=== PATIENT | female | born 1930 | race Caucasian/White ===

== ENCOUNTER 2020-11-20 15:43 | Emergency (ER) | payer MEDICARE ==
[~2020-11-20] VITALS: Ht 152.4 cm; Wt 55.0 kg
--- NOTE | 2020-11-20 16:20 | PHYS DOC ---
Past Medical History Past Medical History: Other (Dementia) General Adult EDM: Chief Complaint: FACIAL INJURY HPI: HPI: Patient is a 89 year old female who was brought here by her daughter for evaluation of facial injury. Patient was not sure what happened. Patient lives with her daughter, this morning her daughter noticed some contusion to the right side of her face, patient told her daughter that she fell last night. Patient denies any back pain, no nausea vomiting, no extremity pain. Patient denies chest pain, no abdominal pain, no nausea vomiting Review of Systems: Review of Systems: Constitutional: Denies fever or chills. [] Eyes: Denies change in visual acuity. [] HENT: Denies nasal congestion or sore throat. [] Respiratory: Denies cough or shortness of breath. [] Cardiovascular: Denies chest pain or edema. [] GI: Denies abdominal pain, nausea, vomiting, bloody stools or diarrhea. [] : Denies dysuria. [] Musculoskeletal: Denies back pain or joint pain. [] Integument: Positive for facial contusion. Neurologic: Denies headache, focal weakness or sensory changes. [] Endocrine: Denies polyuria or polydipsia. [] Lymphatic: Denies swollen glands. [] Psychiatric: Denies depression or anxiety. [] Heart Score: C/O Chest Pain: N/A Risk Factors: Risk Factors: DM, Current or recent (<one month) smoker, HTN, HLP, family history of CAD, obesity. Risk Scores: Score 0 - 3: 2.5% MACE over next 6 weeks - Discharge Home Score 4 - 6: 20.3% MACE over next 6 weeks - Admit for Clinical Observation Score 7 - 10: 72.7% MACE over next 6 weeks - Early Invasive Strategies Physical Exam: PE: Constitutional: Well developed, well nourished, no acute distress, non-toxic appearance. [] HENT: Normocephalic, Right side facial contusion, right side forehead skin contusion, bilateral external ears normal, oropharynx moist, no oral exudates, nose normal. No septal hematoma. Eyes: PERRLA, EOMI, conjunctiva normal, no discharge. right periorbital hematoma. Neck: Normal range of motion, no tenderness, supple, no stridor. [] Cardiovascular:Heart rate regular rhythm, no murmur [] Lungs & Thorax: Bilateral breath sounds clear to auscultation [] Abdomen: Bowel sounds normal, soft, no tenderness, no masses, no pulsatile ashley s. [] Skin: Warm, dry, no erythema, no rash. [] Back: No tenderness, no CVA tenderness. [] Extremities: No tenderness, no cyanosis, no clubbing, ROM intact, no edema. [] Neurologic: Alert and oriented X 3, normal motor function, normal sensory function, no focal deficits noted. [] Psychologic: Affect normal, judgement normal, mood normal. [] EKG: EKG: [] Radiology/Procedures: Radiology/Procedures: [][facility] [address] [place], [place] [id number] IMAGING REPORT Signed PATIENT: NEREIDA TATUM ACCOUNT: [id number] : 1930 LOCATION: ER AGE: 89 SEX: F EXAM STATUS: REG ER ORD. PHYSICIAN: HERIBERTO ESTEBAN DO REASON: FELL, RIGHT SIDE FACIAL AND FOREHEAD INJURY PROCEDURE: CT HEAD AND MAXILLOFACIAL WO Exam: CT head, maxillofacial and cervical spine INDICATION: Fall, right-sided face and forehead injury TECHNIQUE: Sequential axial images through the head, face and cervical spine were obtained without the administration of IV contrast. Comparisons: None FINDINGS: Head: No focal parenchymal lesion or hemorrhage is identified. There is no midline shift or sulcal effacement. Patchy hypodensity in the periventricular white matter. No acute vascular territory infarction is identified. Benites-white distinction is preserved. The ventricular system is within normal limits without compression hydrocephalus. The basal cisterns are well maintained. Face: Extra cranial soft tissue scalp contusion overlying the right frontal region without underlying osseous or intracranial abnormality. Globes and orbital contents are normal. The visualized portions of the paranasal sinuses and mastoid air cells are well-pneumatized. No acute fractures. Cervical spine: Vertebral body heights and alignment are well-maintained. Fracture to the cervical spine is not identified. Multilevel spondylotic change in cervical spine with degenerative disc disease greatest at C3-C4 and C4-C5. Mild bilateral facet arthropathy is noted in the cervical spine. Visualized paraspinal soft tissues are unremarkable. IMPRESSION: 1. Extra cranial soft tissue scalp contusion overlying the right superior orbital ridge. No acute osseous abnormality identified. Underlying globes intradural contents are normal. 2. Moderate small vessel ischemic change, technically age indeterminate without recent prior imaging. 3. Negative CT C-spine for acute traumatic injury. Exposure: One or more of the following in the visualized dose reduction techniques were utilized for this examination: 1. Automated exposure control 2. Adjustment of the MA and/or KV according to patient size Use of iterative of reconstructive technique Electronically signed by: Rosio Miller MD (11/20/2020 4:36 PM) [facility] DICTATED and SIGNED BY: ROSIO MILLER MD DATE: 11/20/20 [id number] 0 Course & Med Decision Making: Course & Med Decision Making Pertinent Labs and Imaging studies reviewed. (See chart for details) Patient is an 89-year-old female who presented to ER evaluation of facial injury, CT scan her head, her face and her C-spine did not show any acute fracture or dislocation. Patient be discharged home in stable condition Dragon Disclaimer: Dragon Disclaimer: This electronic medical record was generated, in whole or in part, using a voice recognition dictation system. Departure Departure Impression: Primary Impression: Facial contusion Disposition: 01 DC HOME SELF CARE/HOMELESS Condition: STABLE Referrals: STANLEY CONNER MD (PCP) Follow up with your doctor as needed Patient Instructions: Facial or Scalp Contusion Additional Instructions: Thank you for visiting our Emergency Department. We appreciate you trusting us with your care. If any additional problems come up don't hesitate to return to visit us. Please follow up with your primary care provider so they can plan additional care if needed and know about the problem that you had. If symptoms worsen come back to the Emergency Department. Any concerning symptoms that start such as chest pain, shortness of air, weakness or numbness on one side of the body, running high fevers or any other concerning symptoms return to the ER. HERIBERTO ESTEBAN DO Nov 20, 2020 16:20
--- NOTE | 2020-11-20 16:38 | RAD ---
Exam: CT head, maxillofacial and cervical spine INDICATION: Fall, right-sided face and forehead injury TECHNIQUE: Sequential axial images through the head, face and cervical spine were obtained without th e administration of IV contrast. Comparisons: None FINDINGS: Head: No focal parenchymal lesion or hemorrhage is identified. There is no midline shift or sulcal effaceme nt. Patchy hypodensity in the periventricular white matter. No acute vascular territory infarction is blair ntified. Benites-white distinction is preserved. The ventricular system is within normal limits without compression hydrocephalus. The basal cisterns are well maintained. Face: Extra cranial soft tissue scalp contusion overlying the right frontal region without underlying osseo us or intracranial abnormality. Globes and orbital contents are normal. The visualized portions of th e paranasal sinuses and mastoid air cells are well-pneumatized. No acute fractures. Cervical spine: Vertebral body heights and alignment are well-maintained. Fracture to the cervical spine is not identified. Multilevel spondylotic change in cervical spine with degenerative disc disease greatest at C3-C4 and C4-C5. Mild bilateral facet arthropathy is noted in the cervical spine. Visualized paraspinal soft tissues are unremarkable. IMPRESSION: 1. Extra cranial soft tissue scalp contusion overlying the right superior orbital ridge. No acute os seous abnormality identified. Underlying globes intradural contents are normal. 2. Moderate small vessel ischemic change, technically age indeterminate without recent prior imaging . 3. Negative CT C-spine for acute traumatic injury. Exposure: One or more of the following in the visualized dose reduction techniques were utilized for this examination: 1. Automated exposure control 2. Adjustment of the MA and/or KV according to patient size Use of iterative of reconstructive technique Electronically signed by: Rosio Carty MD (11/20/2020 4:36 PM) [facility]
[2020-11-20 17:05] VITALS: BP 175/88
== END 2020-11-20 17:30 | disposition home or self-care (01) ==
LOC: ER 15:43
DX: S00.83XA Contusion of other part of head, initial encounter (principal); F03.90 Unspecified dementia, unspecified severity, without behavioral disturbance, psychotic disturbance, mood disturbance, and anxiety; W18.39XA Other fall on same level, initial encounter; Y93.89 Activity, other specified; Y92.89 Other specified places as the place of occurrence of the external cause; Y99.8 Other external cause status
CPT/HCPCS: 70450; 70486; 72125; 99284

== ENCOUNTER 2021-11-09 09:10 | Inpatient (IN) | payer MEDICARE ==
[~2021-11-09] VITALS: Ht 154.9 cm; Wt 52.4 kg
--- NOTE | 2021-11-09 09:19 | PHYS DOC ---
Past Medical History Past Medical History: Dementia, Other Additional Past Medical Histor: OSTEOPOROSIS Past Surgical History: Other Additional Past Surgical Histo: UNKNOWN Smoking Status: Never Smoker Alcohol Use: None Drug Use: None General Adult HPI: HPI: Patient is a 89 year old female brought in by EMS for evaluation after a fall. The patient has dementia. She lives with her daughter. The patient is unsure of what occurred. The patient's daughter arrives in the ER, she reports that a neighbor called her and told her that her mother was lying in the middle of the road. The patient's daughter reports that the patient often gets up in the middle night or early hours of the morning and tries to walk around the house or get outside and walk around. She is supposed to use a cane or a walker, she does not reportedly using any ambulatory device. The patient was unable to get up out of the road on her own when EMS arrived. The patient has multiple abrasions and contusions. The patient does report having pain at her right cheek, where she has a contusion and abrasion. She also has pain at a chin laceration site and left hand laceration site. She also reports having some pain in her epigastric and lower chest area. The patient's daughter reports that she fell over a week ago, and she has had a bruise on her chest/abdomen since that time. The patient denies dyspnea. She denies headache. She denies neck pain or back pain. She denies numbness or tingling. She has chronic mobility issues and chronic generalized weakness. No acute mental status c hanges reported today per the patient's daughter. Review of Systems: Review of Systems: Review of systems is as per HPI, somewhat limited secondary to patient's chronic dementia. Heart Score: C/O Chest Pain: Yes HEART Score for Chest Pain: HEART Score for Chest Pain Response (Comments) Value History Moderately Suspicious 1 ECG Nonspecific Repolarizatio 1 Age > 65 2 Troponin < Normal Limit 0 Total 4 Risk Factors: Risk Factors: DM, Current or recent (<one month) smoker, HTN, HLP, family history of CAD, obesity. Risk Scores: Score 0 - 3: 2.5% MACE over next 6 weeks - Discharge Home Score 4 - 6: 20.3% MACE over next 6 weeks - Admit for Clinical Observation Score 7 - 10: 72.7% MACE over next 6 weeks - Early Invasive Strategies Allergies: Allergies: Allergies Coded Allergies Type Severity Reaction Last Updated Verified Penicillins Allergy Unknown 11/20/20 Yes Physical Exam: PE: Constitutional: Frail, thin, chronically ill-appearing. Disheveled. HENT: She has a superficial linear abrasion of her right cheek, with underlying soft tissue swelling and ecchymosis. She has a large abrasion of her chin. There is an overlying subcutaneous laceration of her mid chin, approximately 1.5 cm. No large cephalhematoma or scalp injury. Her right front tooth is broken. Her dental hygiene is very poor. Mucous membranes are tacky. Oropharynx is patent and clear. TMs are clear bilaterally. Nares are patent clear without rhinorrhea or epistaxis. No hemotympanum. Eyes: PERRL, EOMI, conjunctiva normal, no discharge. No nystagmus. There is some soft tissue swelling and bruising just below her right eye. She was wearing broken glasses and it appears where the glasses hit her face when she fell is where she sustained her abrasion and soft tissue injury of her cheek/infraorbital area. No other evidence of orbital trauma. Neck: Normal range of motion, no tenderness, supple, no stridor. Achy midline, no midline tenderness or step-offs. Cardiovascular:Heart rate regular rhythm, +2 radial and dorsalis pedis pulses bilaterally. Lungs & Thorax: Bilateral breath sounds clear to auscultation [] Abdomen: Abdomen is soft, nondistended, nontender to palpation, no palpable masses organomegaly. There is a small, and contusion of her left upper quadrant/epigastric area. No other evidence of abdominal or flank contusions or evidence of trauma Skin: Chin abrasion, right cheek abrasion and soft tissue swelling. Chin laceration. She has superficial circular abrasions of bilateral anterior knees. She has a flap-like, semicircular laceration/skin avulsion of her dorsum of her mid left hand. Back: No point tenderness, no step-offs. No deformity. Extremities: Bilateral anterior knee circular, superficial abrasions. No bony tenderness. There is a semicircle skin avulsion/laceration of the mid dorsum of her left hand. There is underlying soft tissue swelling and contusion. No bony tenderness of the upper or lower extremities. Pelvis is stable. Full active and passive range of motion of bilateral shoulders, bilateral elbows, bilateral wrists, hands and digits. Full range of motion of bilateral hips, knees, ankles and feet. Neurological: She is awake, alert, oriented to person only. She does not know the date, this is baseline for her. She does not understand or know the circumstances surrounding why she is here. She moves all 4 extremities equally. She has 5 out of 5 motor strength all 4 extremities. No limb ataxia. Speech is clear and fluent. No facial asymmetry. Psychologic: Affect relatively flat, she is very pleasant and cooperative EKG: EKG: EKG is interpreted at 0938 Rhythm is sinus Rate is 100 bpm [place] is normal No STEMI Radiology/Procedures: Radiology/Procedures: IMAGING REPORT Signed PATIENT: NEREIDA TATUM ACCOUNT: [id number] : 1930 LOCATION: ER AGE: 89 SEX: F EXAM STATUS: PRE ER ORD. PHYSICIAN: SMOOTH MONTERO DO REASON: fall, facial injury PROCEDURE: CT HEAD AND MAXILLOFACIAL WO CT scan of the head without contrast 11/09/2021 Clinical History: Fall. Head injury. Technique: Unenhanced, contiguous, 5 mm axial sections were obtained through the head. One or more of the following individualized dose reduction techniques were utilized for this study: 1. Automated exposure control. 2. Adjustment of the mA and/or kV according to patient size. 3. Use of iterative reconstruction technique. Findings: Comparison study is dated 11/20/2020. There is generalized parenchymal atrophy. Areas of decreased attenuation are seen within the periventricular and subcortical white matter of both cerebral hemispheres consistent with areas of small vessel ischemic disease. No acute parenchymal abnormality is seen. No extra-axial fluid collection is noted. No skull fracture is seen. Impression: No acute intracranial abnormality is seen. CT scan of the facial bones without contrast 11/09/2021 Clinical history: Fall with Facial trauma. Technique: Unenhanced, contiguous, 0.625 mm axial sections were obtained through the facial bones and orbits. 3 mm reconstructed axial, coronal and sagittal images were obtained. One or more of the following individualized dose reduction techniques were utilized for this study: 1. Automated exposure control. 2. Adjustment of the mA and/or kV according to patient size. 3. Use of iterative reconstruction technique. Findings: No facial bone fracture is seen. Both orbits are intact. The paranasal sinuses are essentially clear. No air-fluid level is seen. Impression: No facial bone fracture is seen. Electronically signed by: Andrea Roberts MD (11/09/2021 10:19 AM) [id number] DICTATED and SIGNED BY: ANDREA ROBERTS MD DATE: 11/09/21 [id number] 0 IMAGING REPORT Signed PATIENT: NEREIDA TATUM ACCOUNT: [id number] : 1930 LOCATION: ER AGE: 89 SEX: F EXAM STATUS: PRE ER ORD. PHYSICIAN: SMOOTH MONTERO DO REASON: fall, facial injury PROCEDURE: CT CERVICAL SPINE WO CONTRAST CT scan of the cervical spine without contrast 11/09/2021 Clinical history: Fall with neck injury. Technique: Unenhanced, contiguous, 0.625 mm axial sections were obtained through the cervical spine. 2.5 mm reconstructed axial and 2 mm coronal and sagittal reconstructed images were obtained. One or more of the following individualized dose reduction techniques were utilized for this study: 1. Automated exposure control. 2. Adjustment of the mA and/or kV according to patient size. 3. Use of iterative reconstruction technique. Findings: Sagittal and coronal reconstructed images demonstrate straightening of the normal cervical lordosis. Mild lateral curvature of the cervical spine is seen convex to the right. Degenerative changes consisting of varying degrees of disc space narrowing, vertebral endplate sclerosis and mild anterior and posterior vertebral body osteophyte formation are seen throughout the cervical disc spaces. No fracture or subluxation cervical vertebrae is seen. Degenerative changes are seen involving the uncovertebral and facet joints throughout the cervical disc spaces. Atherosclerotic calcification is seen in the region of the carotid bifurcations. Impression: No fracture or subluxation of the cervical vertebra is identified. Electronically signed by: Andrea Roberts MD (11/09/2021 10:24 AM) [id number] DICTATED and SIGNED BY: ANDREA ROBERTS MD DATE: 11/09/21 [id number] 0 IMAGING REPORT Signed PATIENT: NEREIDA TATUM ACCOUNT: [id number] : 1930 LOCATION: ER AGE: 89 SEX: F EXAM STATUS: PRE ER ORD. PHYSICIAN: SMOOTH MONTERO DO REASON: fall, chest pain PROCEDURE: PORTABLE CHEST 1V XR CHEST 1V CLINICAL INDICATIONS: Reason: fall, chest pain COMPARISON: March 18, 2013. Findings: There is mild atelectasis of the right lung base. No lung consolid ation or pleural effusion or pulmonary edema or lung mass or pneumothorax is seen. The heart size, pulmonary vasculature, mediastinum and both jean-paul are unremarkable. No obvious rib deformity or shoulder deformity is evident. IMPRESSION: Mild right lung base atelectasis. Electronically signed by: Brian Lyman MD (11/09/2021 10:30 AM) [id number] DICTATED and SIGNED BY: BRIAN LYMAN MD DATE: 11/09/21 [id number] 0 IMAGING REPORT Signed PATIENT: NEREIDA TATUM ACCOUNT: [id number] : 1930 LOCATION: ER AGE: 89 SEX: F EXAM STATUS: REG ER ORD. PHYSICIAN: SMOOTH MONTERO DO REASON: multiple falls, chest pain, abd pain, abd bruising;OMNI 300,60ML PROCEDURE: CT CHEST ABD PELVIS W/CONTRAST CT scan of the chest, abdomen and pelvis with contrast 11/09/2021 CLINICAL HISTORY: Frequent falls. Chest and abdominal pain. Bruising. TECHNIQUE: After the intravenous administration of contrast, contiguous, 0.625 mm axial sections were obtained through the chest, abdomen and pelvis. 5 mm reconstructed axial and 5 mm sagittal and coronal reconstructed images were obtained. 91 cc of Omnipaque 300 were administered intravenously during this examination. One or more of the following individualized dose reduction techniques were utilized for this study: 1. Automated exposure control. 2. Adjustment of the mA and/or kV according to patient size. 3. Use of iterative reconstruction technique. FINDINGS: Comparison is made to a portable chest radiograph performed earlier today. No mediastinal hematoma is seen. Atherosclerotic calcification of the thoracic aorta is noted. The thoracic aorta is tortuous but tapers normally. There is mild cardiomegaly. Calcified right hilar and mediastinal lymph nodes are seen. Minimal dependent subsegmental atelectasis is seen involving both lungs. No area of consolidation is seen. No pneumothorax or pleural effusion is noted. The liver, spleen, pancreas, adrenal glands and kidneys are within normal limits. Atherosclerotic calcification abdominal aorta and its branches is noted. The abdominal aorta tapers normally. The gallbladder is well-distended. No free fluid or free air is seen within the abdomen. There is no evidence of bowel obstruction. Images through the pelvis demonstrate the urinary bladder distended with urine. No free fluid is seen. No pelvic hematoma is noted. A hip screw, side plate and bone screws are seen within the proximal left femur. Degenerative changes are s een involving the thoracic and lumbar spine. No acute fracture is seen. IMPRESSION: No acute abnormality is seen. Electronically signed by: Andrea Roberts MD (11/09/2021 12:09 PM) [id number] DICTATED and SIGNED BY: ANDREA ROBERTS MD DATE: 11/09/21 [id number] 0 Course & Med Decision Making: Course & Med Decision Making Pertinent Labs and Imaging studies reviewed. (See chart for details) The patient requested pain medication for her wounds. She was given IV fentanyl. IV fluids were given. She tolerated laceration repair well. I discussed the findings, differential diagnosis and plan of care with the patient and her daughter. The patient's daughter reports that she feels that the pat ient requires admission, she is requesting placement. The patient's daughter is her power compliance attorney, she confirmed that the patient is a full CODE STATUS. The patient is excepted for admission by Dr. Wilkinson, on behalf of her primary care physician, Dr. Marley. Caryl Disclaimer: Caryl Disclaimer: This electronic medical record was generated, in whole or in part, using a voice recognition dictation system. Departure Departure Impression: Primary Impression: Fall Additional Impressions: Chin laceration Facial contusion Facial abrasion Laceration of left hand Abrasion of right knee Abrasion of left knee Dementia Failure to thrive in adult Disposition: 09 ADMITTED INPATIENT Admitting Physician: Stanley Marley Condition: GUARDED Referrals: STANLEY MARLEY MD (PCP) Laceration Repair Lac Repair Indication: Chin laceration and left hand laceration Procedure: The patient was placed in the appropriate position, seated on the ED gurney. 1% lidocaine with epinephrine was utilized for local anesthesia. Adequate anesthesia was achieved. The chin wound and left hand wound are both cleaned with Betadine and irrigated copiously with sterile normal saline. No sharp debridement was required. The chin laceration was closed utilizing a total of two 5-0 Ethilon simple interrupted sutures. The left hand wound was closed utilizing a total of three 5-0 Ethilon simple interrupted sutures. Adequate wound eversion, hemostasis and closure were achieved. The wounds were covered with clean dressings. Total repaired wound length: Left chin wound 1 cm. Left hand wound 2 cm The patient tolerated the procedures well. Complications: none. SMOOTH MONTERO DO Nov 09, 2021 09:18
[2021-11-09] MEDS ORDERED: TETANUS AND DIPHTHERIA TOX/PF 0.5 ML DISP.SYRIN. VAX IM ONE (09:45)
[2021-11-09] MEDS ORDERED: fentaNYL PF VIAL 100 MCG/2 ML VIAL IVP ONE ×2 (09:45→12:30)
[2021-11-09] MEDS ORDERED: IV NORMAL SALINE 1000ML BAG 1,000 ML IV ONE (09:45)
[2021-11-09 10:08] LABS: BASO % 0 % (0-3); EOS % 1 % (0-3); HEMATOCRIT 43.4 % (36.0-47.0); LYMPH # 0.6 x10^3/uL (1.0-4.8); LYMPH % 5 % (24-48); MEAN CORPUSCULAR HEMOGLOBIN 29 pg (25-35); MEAN CORPUSCULAR HGB CONC 32 g/dL (31-37); MEAN CORPUSCULAR VOLUME 90 fL (79-100); MONO # 0.7 x10^3/uL (0.0-1.1); MONO % 7 % (0-9); NEUT # 8.9 x10^3/uL (1.8-7.7); NEUT % 87 % (31-73); PLATELET COUNT 256 x10^3/uL (140-400); RED BLOOD COUNT 4.82 x10^6/uL (3.50-5.40); RED CELL DISTRIBUTION WIDTH 13.1 % (11.5-14.5); WHITE BLOOD COUNT 10.2 x10^3/uL (4.0-11.0)
[2021-11-09 10:20] LABS: PROTHROMBIN TIME PATIENT 13.2 SEC (11.7-14.0)
[2021-11-09 10:21] LABS: CALCIUM 9.5 mg/dL (8.5-10.1); GFR 52.2; POTASSIUM 4.1 mmol/L (3.5-5.1)
--- NOTE | 2021-11-09 10:21 | RAD ---
CT scan of the head without contrast 11/09/2021 Clinical History: Fall. Head injury. Technique: Unenhanced, contiguous, 5 mm axial sections were obtained through the head. One or more of the following individualized dose reduction techniques were utilized for this study: 1. Automated exposure control. 2. Adjustment of the mA and/or kV according to patient size. 3. Use of iterative reconstruction technique. Findings: Comparison study is dated 11/20/2020. There is generalized parenchymal atrophy. Areas of decreased attenuation are seen within the perivent ricular and subcortical white matter of both cerebral hemispheres consistent with areas of small vess el ischemic disease. No acute parenchymal abnormality is seen. No extra-axial fluid collection is not ed. No skull fracture is seen. Impression: No acute intracranial abnormality is seen. CT scan of the facial bones without contrast 11/09/2021 Clinical history: Fall with Facial trauma. Technique: Unenhanced, contiguous, 0.625 mm axial sections were obtained through the facial bones and orbits. 3 mm reconstructed axial, coronal and sagittal images were obtained. One or more of the following individualized dose reduction techniques were utilized for this study: 1. Automated exposure control. 2. Adjustment of the mA and/or kV according to patient size. 3. Use of iterative reconstruction technique. Findings: No facial bone fracture is seen. Both orbits are intact. The paranasal sinuses are essentia lly clear. No air-fluid level is seen. Impression: No facial bone fracture is seen. Electronically signed by: Andrea Roberts MD (11/09/2021 10:19 AM) [id number]
--- NOTE | 2021-11-09 10:26 | RAD ---
CT scan of the cervical spine without contrast 11/09/2021 Clinical history: Fall with neck injury. Technique: Unenhanced, contiguous, 0.625 mm axial sections were obtained through the cervical spine. 2.5 mm reconstructed axial and 2 mm coronal and sagittal reconstructed images were obtained. One or more of the following individualized dose reduction techniques were utilized for this study: 1. Automated exposure control. 2. Adjustment of the mA and/or kV according to patient size. 3. Use of iterative reconstruction technique. Findings: Sagittal and coronal reconstructed images demonstrate straightening of the normal cervical lordosis. Mild lateral curvature of the cervical spine is seen convex to the right. Degenerative mack ges consisting of varying degrees of disc space narrowing, vertebral endplate sclerosis and mild ante rior and posterior vertebral body osteophyte formation are seen throughout the cervical disc spaces. No fracture or subluxation cervical vertebrae is seen. Degenerative changes are seen involving the un covertebral and facet joints throughout the cervical disc spaces. Atherosclerotic calcification is se en in the region of the carotid bifurcations. Impression: No fracture or subluxation of the cervical vertebra is identified. Electronically signed by: Andrea Roberts MD (11/09/2021 10:24 AM) [id number]
[2021-11-09 10:29] LABS: ALBUMIN 3.8 g/dL (3.4-5.0); MAGNESIUM 2.2 mg/dL (1.8-2.4); TOTAL BILIRUBIN 0.3 mg/dL (0.2-1.0); TOTAL PROTEIN 7.8 g/dL (6.4-8.2)
[2021-11-09] MEDS ORDERED: DIPHTH,PERTUSS(ACELL),TET TOX 0.5 ML DISP.SYRIN. VAX IM ONE (10:30)
--- NOTE | 2021-11-09 10:32 | RAD ---
XR CHEST 1V CLINICAL INDICATIONS: Reason: fall, chest pain COMPARISON: March 18, 2013. Findings: There is mild atelectasis of the right lung base. No lung consolidation or pleural effusion or pulmonary edema or lung mass or pneumothorax is seen. The heart size, pulmonary vasculature, med iastinum and both jean-paul are unremarkable. No obvious rib deformity or shoulder deformity is evident. IMPRESSION: Mild right lung base atelectasis. Electronically signed by: Brian Lyman MD (11/09/2021 10:30 AM) [id number]
[2021-11-09] MEDS ORDERED: LIDOCAINE 1%/EPI 1:100,000 20 ML VIAL. INJ ONE (11:00)
[2021-11-09] MEDS ORDERED: CONTRAST GIVEN. MC PRN (11:15)
[2021-11-09] MEDS ORDERED: IOHEXOL 300 MG/ML 100ML VIAL. IV ONE (11:15)
--- NOTE | 2021-11-09 12:11 | RAD ---
CT scan of the chest, abdomen and pelvis with contrast 11/09/2021 CLINICAL HISTORY: Frequent falls. Chest and abdominal pain. Bruising. TECHNIQUE: After the intravenous administration of contrast, contiguous, 0.625 mm axial sections were obtained through the chest, abdomen and pelvis. 5 mm reconstructed axial and 5 mm sagittal and coron al reconstructed images were obtained. 91 cc of Omnipaque 300 were administered intravenously during this examination. One or more of the following individualized dose reduction techniques were utilized for this study: 1. Automated exposure control. 2. Adjustment of the mA and/or kV according to patient size. 3. Use of iterative reconstruction technique. FINDINGS: Comparison is made to a portable chest radiograph performed earlier today. No mediastinal hematoma is seen. Atherosclerotic calcification of the thoracic aorta is noted. The th oracic aorta is tortuous but tapers normally. There is mild cardiomegaly. Calcified right hilar and m ediastinal lymph nodes are seen. Minimal dependent subsegmental atelectasis is seen involving both lungs. No area of consolidation is seen. No pneumothorax or pleural effusion is noted. The liver, spleen, pancreas, adrenal glands and kidneys are within normal limits. Atherosclerotic calcification abdominal aorta and its branches is noted. The abdominal aorta tapers n ormally. The gallbladder is well-distended. No free fluid or free air is seen within the abdomen. The re is no evidence of bowel obstruction. Images through the pelvis demonstrate the urinary bladder distended with urine. No free fluid is seen . No pelvic hematoma is noted. A hip screw, side plate and bone screws are seen within the proximal l eft femur. Degenerative changes are seen involving the thoracic and lumbar spine. No acute fracture i s seen. IMPRESSION: No acute abnormality is seen. Electronically signed by: Andrea Roberts MD (11/09/2021 12:09 PM) [id number]
[2021-11-09 13:15] LABS: BILIRUBIN,URINE NEGATIVE (NEG); CLARITY,URINE CLEAR; COLOR,URINE STRAW; NITRITE,URINE NEGATIVE (NEG); PH,URINE 7.5 (<5.0-8.0); PROTEIN,URINE NEGATIVE (NEG-TRACE); UROBILINOGEN,URINE 0.2 mg/dL (0.2 mg/dL)
[2021-11-09 13:16] LABS: AMORPHOUS SEDIMENT,UR PRESENT /HPF; HYALINE CASTS, URINE MODERATE /HPF
[2021-11-09 13:17] LABS: BACTERIA,URINE 0 /HPF (0-FEW); RBC,URINE 0 /HPF (0-2); WBC,URINE 0 /HPF (0-4)
[2021-11-09] MEDS ORDERED: MIRT-7 PO (14:30)
[2021-11-09] MEDS ORDERED: VITA100022 PO (14:30)
[2021-11-09] MEDS ORDERED: MULT-114 PO (14:30)
[2021-11-09] MEDS ORDERED: MEMA10TA PO (14:30)
[2021-11-09] MEDS ORDERED: ACETAMINOPHEN 325 MG TABLET. PO PRN (14:45)
[2021-11-09 15:00] VITALS: BP 154/85
[2021-11-09] MEDS: CALCIUM CARB/VIT D3 500/200 TABLET. PO SCH (16:53)
--- NOTE | 2021-11-09 17:13 | EKG ---
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
[2021-11-09 19:00] VITALS: BP 151/70
[2021-11-09] MEDS: MEMANTINE 10 MG TABLET. PO SCH ×2 (20:53→20:59)
[2021-11-09] MEDS: MIRTAZAPINE 15 MG TABLET PO SCH ×2 (20:53→20:59)
[2021-11-09] MEDS: HALOPERIDOL LACTATE 5 MG/ML VIAL. IVP PRN (23:45)
[2021-11-09 23:57] VITALS: BP 145/69
[2021-11-10 03:00] VITALS: BP 178/81
[2021-11-10] MEDS: HALOPERIDOL LACTATE 5 MG/ML VIAL. IVP PRN (03:47)
[2021-11-10 07:00] VITALS: BP 121/66
[2021-11-10] MEDS: CALCIUM CARB/VIT D3 500/200 TABLET. PO SCH ×2 (08:05→16:30)
[2021-11-10] MEDS: MULTIVITAMIN with MINERAL TABLET. PO SCH (08:05)
[2021-11-10] MEDS: MEMANTINE 10 MG TABLET. PO SCH ×3 (08:05→21:00)
--- NOTE | 2021-11-10 08:10 | PDOC ---
Provider Note Date of Service: DATE: 11/10/21 TIME: 08:09 Provider Note dictated Justifications for Admission Other Justification SHALINI GUO MD Nov 10, 2021 08:10
[2021-11-10 11:00] VITALS: BP 121/75
--- NOTE | 2021-11-10 13:00 | NUR ---
SW following. Discussed with RN, pt from home with daughter, room air, regular diet. COVID pending for possible placement. PT/OT ordered. Pt eloped from home and found down outside. SW will continue to follow.
[2021-11-10 15:00] VITALS: BP 123/62
[2021-11-10 19:00] VITALS: BP 119/56
[2021-11-10] MEDS: MIRTAZAPINE 15 MG TABLET PO SCH ×2 (20:13→21:00)
[2021-11-10 23:00] VITALS: BP 128/57
[2021-11-11 03:24] VITALS: BP 120/60
[2021-11-11 07:00] VITALS: BP 131/65
--- NOTE | 2021-11-11 08:07 | PDOC ---
Provider Note Date of Service: DATE: 11/11/21 TIME: 08:06 Provider Note still sleepy but reesponsive, confused , nonfocal- d/w daughter, may qual for snf, still wants her a full code Justifications for Admission Other Justification SHALINI GUO MD Nov 11, 2021 08:07
[2021-11-11] MEDS: MEMANTINE 10 MG TABLET. PO SCH ×2 (08:13→20:33)
[2021-11-11] MEDS: MULTIVITAMIN with MINERAL TABLET. PO SCH (08:13)
[2021-11-11] MEDS: CALCIUM CARB/VIT D3 500/200 TABLET. PO SCH ×2 (08:13→17:41)
[2021-11-11 11:00] VITALS: BP 108/50
--- NOTE | 2021-11-11 14:49 | NUR ---
SW following. Discussed with RN, pt from home with daughter, room air, regular diet, COVID-19 negative. Therapy recommending SNF. SW spoke with pt's daughter, Cindy (ph: [phone]) she would like to speak to her brother about discharge planning and whether to go to SNF VS home health. Awaiting return call. SW will continue to follow.
[2021-11-11 15:00] VITALS: BP 118/67
--- NOTE | 2021-11-11 15:39 | NUR ---
Assumed patient care at 1500. Agree with most recent nursing assessment. Will continue to monitor.
--- NOTE | 2021-11-11 17:41 | HP ---
DATE OF SERVICE: 11/11/2021 ADMIT DATE: 11/09/2021 CHIEF COMPLAINT: Fall. HISTORY OF PRESENT ILLNESS: An 89-year-old white female with a history of Alzheimer's dementia, moderate degree who was outside, confused and walking down the street and came in with facial abrasions and pain. X-rays of the hand including CT scan of the head, neck, chest, and abdomen all unremarkable and she was admitted for observation and daughter no longer able to care for her, wishing placement. PAST MEDICAL HISTORY: She takes Namenda for dementia, mirtazapine for appetite. No other known medical problems. ALLERGIES: No allergies. She has failed Aricept in the past. SOCIAL HISTORY: , nonsmoker and nondrinker, lives with her family. FAMILY HISTORY: Unremarkable. REVIEW OF SYSTEMS: Unremarkable. OBJECTIVE: ENT: Multiple facial abrasions. No other specific inciting trauma. 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 NECK: No carotid bruits, nodes or masses. LUNGS: Clear. CARDIOVASCULAR: Regular rate. No irregular beat or murmur. ABDOMEN: Benign and nontender. EXTREMITIES: No active joint or skin lesions or injuries. NEUROLOGIC: Sleeping after sedation. PHYSIOLOGIC: Nonfocal. ASSESSMENT: Progressive dementia, self-care deficits, and recent fall. PLAN: Admitted for evaluation for therapy and possible placement. JEREMY/OSMEL DR: Daniel TID: [phone]
[2021-11-11 19:00] VITALS: BP 141/71
[2021-11-11] MEDS: MIRTAZAPINE 15 MG TABLET PO SCH (20:33)
[2021-11-11 23:00] VITALS: BP 159/89
[2021-11-12 02:43] VITALS: BP 181/80
[2021-11-12 07:00] VITALS: BP 169/92
[2021-11-12] MEDS: CALCIUM CARB/VIT D3 500/200 TABLET. PO SCH (08:08)
[2021-11-12] MEDS: MULTIVITAMIN with MINERAL TABLET. PO SCH (08:09)
[2021-11-12] MEDS: MEMANTINE 10 MG TABLET. PO SCH (08:09)
--- NOTE | 2021-11-12 08:32 | SNU/HH DC ---
DISCHARGE WITH HOME HEALTH DISCHARGE INFORMATION: Final Diagnosis: Problems Medical Problems: (1) Abrasion of left knee Status: Acute (2) Abrasion of right knee Status: Acute (3) Chin laceration Status: Acute (4) Dementia Status: Acute (5) Facial abrasion Status: Acute (6) Facial contusion Status: Acute (7) Failure to thrive in adult Status: Acute (8) Fall Status: Acute (9) Laceration of left hand Status: Acute Condition on Discharge: Stable CODE STATUS: Code Status: Full HOME HEALTH: Face to Face: I certify this patient is under my care and that I, or a nurse practitioner or physician's assistant dean of students working with me, had a face to face encounter that meets the physician face to face encounter requirements with this patient on []. RN For Eval/Treatment: No Physical Therapy For: Evalulation/Treatment Home Health Aide For: Self-care Pt Meets Homebound Status: Extreme weakness w/ amb. POST DISCHARGE ORDERS: DIET AFTER DISCHARGE: Regular CERTIFICATION STATEMENT: Certification Statement: Certification Statement: Based on the above finding, I certify that this patient is confined to the home and needs intermittent care home care, physical therapy and/or speech therapy, or continues to need occupational therapy.~ This patient is under my care, and I have initiated the establishment of the plan of care.~ This patient will be followed by myself or a community physician who will periodically review the plan of care. Home Meds Reported Medications Mirtazapine (MIRTAZAPINE) 15 Mg Tablet, 1 TAB PO QHS for sleep, #30 TAB 3 Refills 11/09/21 Memantine Hcl (NAMENDA) 10 Mg Tablet, 1 TAB PO BID for dementia, #180 TAB 1 Refill 11/09/21 Vitamin E Acetate (VITAMIN E) 1,000 Unit Capsule, 1 CAP PO [id number] for supplement for 30 Days, #30 CAP 0 Refills 11/09/21 Multivitamin With Minerals (MULTIVITAMINS WITH MINERALS) 1 Each Tablet, 1 TAB PO DAILY for supplement for 30 Days, #30 TAB 0 Refills 11/09/21 SHALINI GUO MD Nov 12, 2021 08:32
--- NOTE | 2021-11-12 08:35 | PDOC ---
Provider Note Date of Service: DATE: 11/12/21 TIME: 08:34 Provider Note [id number] Justifications for Admission Other Justification SHALINI GUO MD Nov 12, 2021 08:35
--- NOTE | 2021-11-12 08:53 | DS ---
DATE OF DISCHARGE: 11/12/2021 HOSPITAL SUMMARY: An 89-year-old white female with dementia who had a fall outside the home and some facial abrasions and lacerations that did not require repair. CBC, chemistry profile and urine were unremarkable. COVID serology was negative. CT scans of the head, facial bones, neck and cervical spine were all within normal limits. She was monitored, requiring some Haldol at first for agitation and that she is more alert, more back to her normal self, which includes dementia. Daughter decided to give retirement. At this time will take the patient home with home health with unfortunately a poor prognosis given her progressive dementia. FINAL DIAGNOSES: 1. Fall with secondary facial abrasions. 2. Progressive Alzheimer's dementia. OPERATIONS, PROCEDURES, COMPLICATIONS, AND CONSULTATIONS: None. DISPOSITION: Discharged home with home health, daughter has requested full code at this time. Home meds remain the same. DIET: Regular. PROGNOSIS: Guarded. RICARDO DR: Daniel TID: [phone]
--- NOTE | 2021-11-12 10:14 | NUR ---
SS following up with discharge planning. SS reviewed pt chart and discussed with pt RN. Pt is currently on room air. COVID19 negative. Discharge orders on the chart for home with home healthcare. Per notes, pt's daughter agreeable to [facility], ; fax [phone]. Discharge orders and referral sent to [facility]. Pt's RN and pt's daughter notified.
--- NOTE | 2021-11-12 11:01 | NUR ---
Discharge Note: NEREIDA TATUM Discharge instructions and discharge home medications reviewed with Family Member and a copy given. All questions have been answered and understanding verbalized. The following instructions and handouts were given: discharge instructions and education. Discontinued lines and drains: Peripheral IV discontinued intact. Patient discharged to Home w/services with Family Member via Wheelchair off unit by AYAAN.
== END 2021-11-12 11:06 | disposition home health service (06) | DRG 605 ==
LOC: ER 09:10 → 5 NORTH 12:19
PROVIDERS: ADMIT Family Medicine; ATTEND Family Medicine
PROC: 0HQ1XZZ Repair Face Skin, External Approach (ICD-10-PCS; principal; 2021-11-09)
PROC: 0HQGXZZ Repair Left Hand Skin, External Approach (ICD-10-PCS; 2021-11-09)
DX: S00.83XA Contusion of other part of head, initial encounter (principal); J98.11 Atelectasis; S80.212A Abrasion, left knee, initial encounter; G30.9 Alzheimer's disease, unspecified; F02.80 Dementia in other diseases classified elsewhere, unspecified severity, without behavioral disturbance, psychotic disturbance, mood disturbance, and anxiety; M81.0 Age-related osteoporosis without current pathological fracture; R29.6 Repeated falls; R62.7 Adult failure to thrive; S30.1XXA Contusion of abdominal wall, initial encounter; S61.412A Laceration without foreign body of left hand, initial encounter; S80.211A Abrasion, right knee, initial encounter; W18.39XA Other fall on same level, initial encounter; Y93.89 Activity, other specified; Y92.89 Other specified places as the place of occurrence of the external cause; Y99.8 Other external cause status
CPT/HCPCS: 12001; 12011; 36415; 70450; 70486; 71045; 71260; 72125; 74177; 80053; 81001; 82550; 83605; 83735; 84100; 84484; 85025; 85610; 85730; 90471; 90715; 93005; 96361; 96374; 96375; J1630; J3010; J3490; J7030; Q9967; U0003; 97116-GP; 97530-GO; 97530-GP; 97535-GO; 99285-25; G0378

== ENCOUNTER 2021-11-13 17:15 | Inpatient (IN) | payer MEDICARE ==
[~2021-11-13] VITALS: Ht 160 cm; Wt 55.0 kg
[~2021-11-13 17:15] MED LIST: MEMA10TA PO; MIRT-7 PO; MULT-114 PO; VITA100022 PO
--- NOTE | 2021-11-13 17:40 | ED.ADGEN ---
Past Medical History Past Medical History: Dementia, Other Additional Past Medical Histor: OSTEOPOROSIS Past Surgical History: Other Additional Past Surgical Histo: LEFT HIP, RIGHT WRIST Smoking Status: Never Smoker Alcohol Use: None Drug Use: None General Adult EDM: Chief Complaint: ALTERED MENTAL STATUS HPI: HPI: Patient is a 89 year old female brought in by daughter for altered mental status. Patient was discharged yesterday at 11 AM after she had a ground-level fall. Patient had fall on the sidewalk when she had walked away from the house, and was found by neighbor. Had facial lacerations and a hand laceration repaired in the emergency department. Patient was admitted for a few days and is sent home in the care of her daughter. Daughter states that her mother was acting around baseline yesterday, but noticed that when she is getting ready for bed she seemed a little more fatigued. This morning would not get out of bed. Daughter states the patient has also been more altered, has a history of dementia but is normally alert. Patient normally ambulates with or without a walker. Denies any new falls or new medications. Daughter also noticed that her right lower extremity is cool to the touch when compared to the left. Review of Systems: Review of Systems: All other systems within normal limits except for as noted in the HPI Current Medications: Current Medications Medications (Trade) Dose Ordered Sig/Danielle Start Time Stop Time Status Last Admin Dose Admin Sodium Chloride 1,000 ml @ 1,000 mls/hr 1X ONCE 11/13/21 19:00 11/13/21 19:59 DC 11/13/21 19:10 1,000 MLS/HR Allergies: Allergies: Allergies Coded Allergies Type Severity Reaction Last Updated Verified Penicillins Allergy Intermediate 11/13/21 Yes Physical Exam: PE: Constitutional: Well developed, well nourished, no acute distress, non-toxic appearance. [] HENT: Normocephalic, atraumatic, bilateral external ears normal, nose normal. [] Eyes: PERRLA, conjunctiva normal, no discharge. [] Neck: No rigidity, supple, no stridor. [] Cardiovascular: Regular rate and rhythm, brisk cap refill. Strong DP pulse [] Lungs & Thorax: Non labored symmetric respirations, no tachypnea or respiratory distress [] Abdomen: Soft, nondistended. Skin: Warm, dry, no erythema, no rash. Well-healing lacerations on face and hand [] Back: Unremarkable Extremities: No deformities, range of motion grossly intact, no lower extremity edema. Right ankle and foot cooler when compared to left [] Neurologic: Alert and oriented X 3, no focal deficits noted. [] Psychologic: Affect normal, judgement normal, mood normal. [] Current Patient Data: Labs: Laboratory Tests Test 11/13/21 17:30 11/13/21 18:18 11/13/21 20:14 White Blood Count 10.7 x10^3/uL (4.0-11.0) Red Blood Count 4.32 x10^6/uL (3.50-5.40) Hemoglobin 12.9 g/dL (12.0-15.5) Hematocrit 38.8 % (36.0-47.0) Mean Corpuscular Volume 90 fL (79-100) Mean Corpuscular Hemoglobin 30 pg (25-35) Mean Corpuscular Hemoglobin Concent 33 g/dL (31-37) Red Cell Distribution Width 13.5 % (11.5-14.5) Platelet Count 248 x10^3/uL (140-400) Neutrophils (%) (Auto) 73 % (31-73) Lymphocytes (%) (Auto) 13 % (24-48) L Monocytes (%) (Auto) 14 % (0-9) H Eosinophils (%) (Auto) 0 % (0-3) Basophils (%) (Auto) 1 % (0-3) Neutrophils # (Auto) 7.8 x10^3/uL (1.8-7.7) H Lymphocytes # (Auto) 1.4 x10^3/uL (1.0-4.8) Monocytes # (Auto) 1.4 x10^3/uL (0.0-1.1) H Eosinophils # (Auto) 0.0 x10^3/uL (0.0-0.7) Basophils # (Auto) 0.1 x10^3/uL (0.0-0.2) Prothrombin Time 14.0 SEC (11.7-14.0) Prothrombin Time INR 1.1 (0.8-1.1) Sodium Level 138 mmol/L (136-145) Potassium Level 4.0 mmol/L (3.5-5.1) Chloride Level 101 mmol/L (98-107) Carbon Dioxide Level 29 mmol/L (21-32) Anion Gap 8 (6-14) Blood Urea Nitrogen 16 mg/dL (7-20) Creatinine 0.8 mg/dL (0.6-1.0) Estimated GFR (Cockcroft-Gault) 67.5 BUN/Creatinine Ratio 20 (6-20) Glucose Level 114 mg/dL (70-99) H Glucose (Fingerstick) 113 mg/dL (70-99) H Lactic Acid Level 0.7 mmol/L (0.4-2.0) Calcium Level 9.4 mg/dL (8.5-10.1) Magnesium Level 2.1 mg/dL (1.8-2.4) Total Bilirubin 0.6 mg/dL (0.2-1.0) Aspartate Amino Transferase (AST) 17 U/L (15-37) Alanine Aminotransferase (ALT) 22 U/L (14-59) Alkaline Phosphatase 113 U/L (46-116) Troponin I High Sensitivity 11 ng/L (4-50) WY-Yzm-E-Type Natriuretic Peptide 265 pg/mL (0-449) Total Protein 7.1 g/dL (6.4-8.2) Albumin 3.1 g/dL (3.4-5.0) L Albumin/Globulin Ratio 0.8 (1.0-1.7) L Influenza Type A Antigen Negative (NEGATIVE) Influenza Type B Antigen Negative (NEGATIVE) SARS-CoV-2 Antigen (Rapid) Negative (NEGATIVE) Urine Collection Type Unknown Urine Color Yellow Urine Clarity Clear Urine pH 7.0 (<5.0-8.0) Urine Specific [place] 1.015 (1.000-1.030) Urine Protein Trace mg/dL (NEG-TRACE) Urine Glucose (UA) Negative mg/dL (NEG) Urine Ketones (Stick) Negative mg/dL (NEG) Urine Blood Trace (NEG) Urine Nitrite Negative (NEG) Urine Bilirubin Negative (NEG) Urine Urobilinogen Dipstick 0.2 mg/dL (0.2 mg/dL) Urine Leukocyte Esterase Negative (NEG) Urine RBC 1-2 /HPF (0-2) Urine WBC 0 /HPF (0-4) Urine Squamous Epithelial Cells Few /LPF Urine Bacteria 0 /HPF (0-FEW) Urine Mucus Mod /LPF Laboratory Tests 11/13/21 17:30 Laboratory Tests 11/13/21 17:30 Vital Signs: Vital Signs Date Time Temp Pulse Resp B/P (MAP) Pulse Ox O2 Delivery O2 Flow Rate FiO2 11/13/21 20:30 102 20 160/82 (108) 97 Room Air 11/13/21 17:15 99.1 99.1 EKG: EKG: [] Heart Score: C/O Chest Pain: N/A Risk Factors: Risk Factors: DM, Current or recent (<one month) smoker, HTN, HLP, family history of CAD, obesity. Risk Scores: Score 0 - 3: 2.5% MACE over next 6 weeks - Discharge Home Score 4 - 6: 20.3% MACE over next 6 weeks - Admit for Clinical Observation Score 7 - 10: 72.7% MACE over next 6 weeks - Early Invasive Strategies Radiology/Procedures: Radiology/Procedures: [facility] [address] [place] [address] IMAGING REPORT Signed PATIENT: NEREIDA TATUM ACCOUNT: [id number] : 1930 LOCATION: ER AGE: 89 SEX: F EXAM STATUS: REG ER ORD. PHYSICIAN: KELSIE BRANDON MD REASON: ams PROCEDURE: CHEST AP ONLY XR CHEST 1V Clinical Indication: Reason: ams / Spl. Instructions: / History: Comparison: AP chest November 09, 2021. Findings: The cardiomediastinal silhouette is normal. Lungs are clear. There is no pneumothorax. No pleural effusion is appreciated. No acute bone abnormality. IMPRESSION: No acute cardiopulmonary process. Electronically signed by: Booker Lemus MD (11/13/2021 5:47 PM) [facility] DICTATED and SIGNED BY: BOOKER LEMUS MD DATE: 11/13/21 174 [] Course & Med Decision Making: Course & Med Decision Making Pertinent Labs and Imaging studies reviewed. (See chart for details) [] Dragon Disclaimer: Dragon Disclaimer: This electronic medical record was generated, in whole or in part, using a voice recognition dictation system. Departure Departure Impression: Primary Impression: AMS (altered mental status) Disposition: ADMITTED INPATIENT Condition: STABLE Referrals: STANLEY CONNER MD (PCP) KELSIE BRANDON MD Nov 13, 2021 17:40 ADRIANA PRITCHARD MD Nov 13, 2021 22:39
[2021-11-13 17:42] LABS: BASO # 0.1 x10^3/uL (0.0-0.2); BASO % 1 % (0-3); EOS % 0 % (0-3); HEMATOCRIT 38.8 % (36.0-47.0); HEMOGLOBIN 12.9 g/dL (12.0-15.5); LYMPH # 1.4 x10^3/uL (1.0-4.8); LYMPH % 13 % (24-48); MEAN CORPUSCULAR HEMOGLOBIN 30 pg (25-35); MEAN CORPUSCULAR HGB CONC 33 g/dL (31-37); MEAN CORPUSCULAR VOLUME 90 fL (79-100); MONO # 1.4 x10^3/uL (0.0-1.1); MONO % 14 % (0-9); NEUT # 7.8 x10^3/uL (1.8-7.7); NEUT % 73 % (31-73); PLATELET COUNT 248 x10^3/uL (140-400); RED BLOOD COUNT 4.32 x10^6/uL (3.50-5.40); RED CELL DISTRIBUTION WIDTH 13.5 % (11.5-14.5); WHITE BLOOD COUNT 10.7 x10^3/uL (4.0-11.0)
--- NOTE | 2021-11-13 17:49 | RAD ---
XR CHEST 1V Clinical Indication: Reason: ams / Spl. Instructions: / History: Comparison: AP chest November 09, 2021. Findings: The cardiomediastinal silhouette is normal. Lungs are clear. There is no pneumothorax. No pleural eff usion is appreciated. No acute bone abnormality. IMPRESSION: No acute cardiopulmonary process. Electronically signed by: Booker Lemus MD (11/13/2021 5:47 PM) [facility]
[2021-11-13 17:52] LABS: CALCIUM 9.4 mg/dL (8.5-10.1); CREATININE 0.8 mg/dL (0.6-1.0); GFR 67.5
[2021-11-13 17:58] LABS: ALBUMIN 3.1 g/dL (3.4-5.0); ALBUMIN/GLOBULIN RATIO 0.8 (1.0-1.7); MAGNESIUM 2.1 mg/dL (1.8-2.4); TOTAL BILIRUBIN 0.6 mg/dL (0.2-1.0); TOTAL PROTEIN 7.1 g/dL (6.4-8.2)
--- NOTE | 2021-11-13 18:10 | RAD ---
Right LOWER EXTREMITY DUPLEX ARTERY ULTRASOUND Indication: Reason: cold exteremity / Spl. Instructions: / History: Comparison: None. Procedure: Real-time grayscale, color flow Doppler, and Doppler spectral waveform analysis of the art erial system of the lower extremity is performed. Findings: No arterial occlusion is identified. No focal elevated peak systolic velocity is seen. There is triph asic waveform in the common femoral artery and the proximal and mid superficial femoral artery. The w aveforms are otherwise biphasic in the right lower extremity. Atherosclerotic plaque is noted through out. IMPRESSION: No hemodynamically significant stenosis. Electronically signed by: Booker Lemus MD (11/13/2021 6:08 PM) [facility]
--- NOTE | 2021-11-13 18:14 | RAD ---
PQRS Compliance Statement: One or more of the following individualized dose reduction techniques were utilized for this examinat ion: 1. Automated exposure control 2. Adjustment of the mA and/or kV according to patient size 3. Use of iterative reconstruction technique CT HEAD WITHOUT CONTRAST History: Reason: altered mental status / Spl. Instructions: / History: Comparison: CT head without contrast, 4 days ago. Technique: Axial images are obtained of the head from the skull base through the vertex without IV co ntrast. Findings: No mass-effect, midline shift, extra-axial fluid collection, hemorrhage, or obvious acute infarction is identified. Basilar cisterns are patent. The ventricles and sulci are prominent, consistent with generalized cerebral atrophy. There is modera te periventricular white matter hypoattenuation. This is a nonspecific finding but is commonly due t o chronic small vessel ischemic disease. Bone windows demonstrate no acute calvarial abnormality. The visualized paranasal sinuses are clear. Mastoid air cells are well aerated. IMPRESSION: 1. No acute intracranial abnormality. 2. Generalized cerebral atrophy and moderate periventricular white matter changes probably due to ch ronic small vessel ischemic disease. Electronically signed by: Booker Lemus MD (11/13/2021 6:12 PM) [facility] LU[facility]
[2021-11-13 18:42] LABS: INFLUENZA A PATIENT NEGATIVE (NEGATIVE); INFLUENZA B PATIENT NEGATIVE (NEGATIVE)
[2021-11-13] MEDS ORDERED: IV NORMAL SALINE 1000ML BAG 1,000 ML IV ONE (19:00)
[2021-11-13 20:33] LABS: BILIRUBIN,URINE NEGATIVE (NEG); CLARITY,URINE CLEAR; COLOR,URINE YELLOW; NITRITE,URINE NEGATIVE (NEG); PROTEIN,URINE TRACE mg/dL (NEG-TRACE); UROBILINOGEN,URINE 0.2 mg/dL (0.2 mg/dL)
[2021-11-13 20:34] LABS: BACTERIA,URINE 0 /HPF (0-FEW); WBC,URINE 0 /HPF (0-4)
[2021-11-13 22:10] VITALS: BP 173/75
--- NOTE | 2021-11-13 22:10 | NUR ---
Patient admitted from ER to room 408 per cart. Admitting diagnosis: AMS and weakness. Patient's daughter stated that patient was discharged yesterday from [facility]. Patient's daughter concerned that patient is more lethargic today and that patient did not want to get out of bed this morning. Patient is alert to self and knows that she is the hospital. Dishwasher Preparer consult was ordered to assist family with discharge needs. Patient is resting quietly and is calm and cooperative at this time. Will continue to monitor.
[2021-11-14 03:00] VITALS: BP 173/91
--- NOTE | 2021-11-14 04:58 | EKG ---
[facility] [address] [place] [address] Test Date: 2021-11-13 Test Time: 17:58:54 Pat Name: NEREIDA TATUM Department: Room: [facility] Gender: F Volunteer Services Specialist: : 1930 Requested By: KELSIE BRANDON Order Number: [id number] Reading MD: Klever Colindres Measurements Intervals [place] Rate: 98 P: 49 ND: 138 QRS: 5 QRSD: 76 T: 39 QT: 306 QTc: 392 Interpretive Statements SINUS RHYTHM LEFT ATRIAL ABNORMALITY Electronically Signed On 11-16-2021 15:15:02 CDT by Klever Colindres
[2021-11-14 07:00] VITALS: BP 151/68
[2021-11-14] MEDS ORDERED: ACETAMINOPHEN 500 MG TABLET PO PRN (08:30)
--- NOTE | 2021-11-14 08:31 | PDOC ---
Provider Note Date of Service: DATE: 11/14/21 TIME: 08:30 Provider Note [id number] Justifications for Admission Other Justification SHALINI GUO MD Nov 14, 2021 08:30
[2021-11-14] MEDS: MEMANTINE 10 MG TABLET. PO SCH ×2 (10:14→20:29)
--- NOTE | 2021-11-14 10:28 | HP ---
DATE OF SERVICE: 11/14/2021 ADMIT DATE: 11/13/2021 CHIEF COMPLAINT: Weakness. HISTORY OF PRESENT ILLNESS: An 89-year-old white female discharged one day ago after a fall with facial wounds and some sutures and observation for lethargy, it resolved fairly quickly. No other abnormalities were found. All x-rays were normal as was lab work and she went home, feeling better, but apparently was unable to move or speak for a while several hours after being at home. She got back to the ER. All tests were unremarkable and she seems to be better this morning, awake and alert for her. PAST HISTORY: MEDICATIONS: Listed per the chart. She is on Namenda and Remeron. ALLERGIES: PENICILLIN. SOCIAL HISTORY: Lives with daughter, demented. Nonsmoker, nondrinker, . FAMILY HISTORY: Unremarkable. REVIEW OF SYSTEMS: No other complaints. 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 NECK: No masses, nodes or thyroid enlargement. LUNGS: Clear without tachypnea. CARDIOVASCULAR: Regular rate, mild tachycardia is noted. No irregular beats noted. ABDOMEN: Soft, benign, nontender. EXTREMITIES: Healing sutures on the hands no fractures or skin lesions are seen. Pulses are reasonable. NEUROLOGIC: She thinks she is in [place], not sure of the year. Moves all extremities. Gait is not tested. No overt cranial nerve abnormalities are seen. ASSESSMENT: Dementia with mild tachycardia, appears to be better after recent fall. Recent lethargy, etiology is not clear. PLAN: Check TSH. Regarding her tachycardia and may be able to go home later today if she seems still to be better. Otherwise, evaluation based on symptoms. JEREMY/RACHAEL/MOH DR: JEREMY/manuelito TID: [id number]
[2021-11-14 10:54] VITALS: BP 154/74
[2021-11-14 14:52] VITALS: BP 125/66
[2021-11-14 19:00] VITALS: BP 128/65
[2021-11-14] MEDS: MIRTAZAPINE 15 MG TABLET PO SCH (20:28)
[2021-11-14 23:00] VITALS: BP 170/72
[2021-11-15 03:00] VITALS: BP 142/64
[2021-11-15 07:00] VITALS: BP 139/78
[2021-11-15] MEDS: MEMANTINE 10 MG TABLET. PO SCH ×2 (08:07→20:59)
[2021-11-15 10:21] VITALS: BP 123/64
[2021-11-15 14:53] VITALS: BP 121/64
--- NOTE | 2021-11-15 19:19 | PN ---
DATE: 11/15/2021 LOCATION: She is in room 408. SUBJECTIVE: This 89-year-old female admitted through the Emergency Room with lethargy and unable to move her speak right at home. She had fallen the Wednesday prior when eloping from the home due to wanting to go to her childhood home. Her daughter is present during the stay and it sounds like she is getting fairly far along in the progression of dementia. Her and her live with the patient and normally able to go to work and come back during the day every couple hours check on her, but now she is worried that they may not be able to handle her any longer at home with this elopement and I will ask clinical social worker to see her. The patient is awake, alert, confused and pleasant. OBJECTIVE: VITAL SIGNS: Stable. She is afebrile. She does have facial wound on her right cheek and chin, which appeared to be healing well and have sutures present. CHEST: Clear. HEART: Regular. ABDOMEN: Benign. NEUROLOGIC: Nothing focal neurologically. IMPRESSION: 1. Dementia with recent fall. 2. Mental status change, improving and no good reason on investigation lab watson or x-ray watson to explain the same. 3. Advancing dementia. PLAN: building services engineer consult. We will ask therapy to see for safety with ambulation and the patient will be monitored, managed and treated appropriately. LEV FERGUSON: Rios TID: [id number]
[2021-11-15 20:00] VITALS: BP 162/74
[2021-11-15] MEDS: MIRTAZAPINE 15 MG TABLET PO SCH (20:59)
[2021-11-15 23:00] VITALS: BP 154/76
[2021-11-16 03:00] VITALS: BP 154/70
[2021-11-16 07:00] VITALS: BP 152/87
[2021-11-16] MEDS: MEMANTINE 10 MG TABLET. PO SCH ×2 (09:02→21:20)
[2021-11-16 11:00] VITALS: BP 120/75
--- NOTE | 2021-11-16 11:18 | PN ---
DATE: 11/16/2021 DAILY PROGRESS NOTE LOCATION: She is in room 408. SUBJECTIVE: This 89-year-old female remains hospitalized with mental status changes at home and inability to move her speak right. This was following a fall, 5 or 6 days earlier for which she had received sutures in her face, has been in the hospital. Daughter is present again today and expresses concerns about taking her back home and social studies teacher consult is in to help with discharge planning. Physical therapy has evaluated and recommended snf, which I believe is a good idea to give us some time for family to decide about placement as she is likely going to need the same. OBJECTIVE: VITAL SIGNS: Stable. She is afebrile. Facial wounds on her right cheek and chin appeared to be healing. CHEST: Clear. HEART: Regular. ABDOMEN: Benign. NEUROLOGIC: Intact. ASSESSMENT: 1. Dementia with recent fall. 2. Mental status change, improving, but probably related to advancing dementia. PLAN: intermediate and Social Service consult. Otherwise, same. RALPH DR: Rios TID: [id number]
[2021-11-16 15:00] VITALS: BP 135/62
[2021-11-16 19:00] VITALS: BP 150/76
[2021-11-16] MEDS: MIRTAZAPINE 15 MG TABLET PO SCH (21:20)
[2021-11-16 23:00] VITALS: BP 174/82
[2021-11-17 03:00] VITALS: BP 166/81
[2021-11-17 07:15] VITALS: BP 160/73
--- NOTE | 2021-11-17 08:49 | PDOC ---
Provider Note Date of Service: DATE: 11/17/21 TIME: 08:48 Provider Note d\sleepy but stable, exam same - tsh ok- as she failed home dc will need snf at least short term Justifications for Admission Other Justification SHALINI GUO MD Nov 17, 2021 08:49
[2021-11-17 10:56] VITALS: BP 144/75
[2021-11-17] MEDS: MEMANTINE 10 MG TABLET. PO SCH ×2 (10:57→21:17)
--- NOTE | 2021-11-17 14:59 | NUR ---
1455 PCR swab sent to lab
[2021-11-17 15:16] VITALS: BP 124/62
[2021-11-17 19:00] VITALS: BP 139/70
[2021-11-17] MEDS: MIRTAZAPINE 15 MG TABLET PO SCH (21:17)
[2021-11-17 23:00] VITALS: BP 136/64
[2021-11-18 03:00] VITALS: BP 145/71
[2021-11-18 07:15] VITALS: BP 169/68
[2021-11-18] MEDS: MEMANTINE 10 MG TABLET. PO SCH ×2 (07:58→21:27)
--- NOTE | 2021-11-18 08:14 | PDOC ---
Provider Note Date of Service: DATE: 11/18/21 TIME: 08:13 Provider Note looks better, eating, still confused- [employer] declined skilled per call 11/17, can go to intermediat when accepted Justifications for Admission Other Justification SHALINI GUO MD Nov 18, 2021 08:14
[2021-11-18 11:08] VITALS: BP 142/66
[2021-11-18 14:58] VITALS: BP 132/67
[2021-11-18 19:00] VITALS: BP 152/71
[2021-11-18] MEDS: MIRTAZAPINE 15 MG TABLET PO SCH (21:27)
[2021-11-18 23:08] VITALS: BP 147/71
[2021-11-19 03:00] VITALS: BP 156/72
[2021-11-19 07:15] VITALS: BP 112/65
--- NOTE | 2021-11-19 08:11 | PDOC ---
Provider Note Date of Service: DATE: 11/19/21 TIME: 08:10 Provider Note status same, alert but confused- placement pending, samemds Justifications for Admission Other Justification SHALINI GUO MD Nov 19, 2021 08:11
[2021-11-19] MEDS: MEMANTINE 10 MG TABLET. PO SCH ×2 (08:33→20:22)
--- NOTE | 2021-11-19 10:00 | NUR ---
SW following. Discussed with RN, Samir ([place]) did not receive fax sent twice yesterday by search planner, Melinda. SW resent this morning and it has been received. SW awaiting acceptance decision. COVID-19 negative. MARC will continue to follow. Addendum: 11/19/21 at 1333 by SURJIT TRAN [facility] pending insurance approval. Pt's daughter and RN notified.
[2021-11-19 10:51] VITALS: BP 122/66
[2021-11-19 14:57] VITALS: BP 119/71
[2021-11-19 19:00] VITALS: BP 140/71
[2021-11-19] MEDS: MIRTAZAPINE 15 MG TABLET PO SCH (20:22)
[2021-11-19 23:21] VITALS: BP 170/83
[2021-11-20 02:54] VITALS: BP 135/78
[2021-11-20 07:00] VITALS: BP 146/76
--- NOTE | 2021-11-20 07:45 | SNU/HH DC ---
DISCHARGE ORDERS DISCHARGE INFORMATION: CONDITION ON DISCHARGE: Stable CODE STATUS: Code Status: Full [facility] FACILITY: SNF STAY <30 DAYS: Yes HOSPICE: HOSPICE: No POST DISCHARGE ORDERS: ACTIVITY ORDERS: Activity as tolerated DIET AFTER DISCHARGE: Regular TREATMENT/EQUIPMENT ORDERS: Physical Therapy For: Evalulation/Treatment DISCHARGE MEDICATIONS: Home Meds Reported Medications Mirtazapine (MIRTAZAPINE) 15 Mg Tablet, 1 TAB PO QHS for sleep, #30 TAB 3 Refills 11/09/21 Memantine Hcl (NAMENDA) 10 Mg Tablet, 1 TAB PO BID for dementia, #180 TAB 1 Refill 11/09/21 Vitamin E Acetate (VITAMIN E) 1,000 Unit Capsule, 1 CAP PO [id number] for supplement for 30 Days, #30 CAP 0 Refills 11/09/21 Multivitamin With Minerals (MULTIVITAMINS WITH MINERALS) 1 Each Tablet, 1 TAB PO DAILY for supplement for 30 Days, #30 TAB 0 Refills 11/09/21 SHALINI GUO MD Nov 20, 2021 07:45
--- NOTE | 2021-11-20 07:54 | PDOC ---
Provider Note Date of Service: DATE: 11/20/21 TIME: 07:53 Provider Note [id number] Justifications for Admission Other Justification SHALINI GUO MD Nov 20, 2021 07:54
[2021-11-20] MEDS: MEMANTINE 10 MG TABLET. PO SCH (07:58)
--- NOTE | 2021-11-20 08:11 | DS ---
DATE OF DISCHARGE: 11/20/2021 HOSPITAL SUMMARY: An 89-year-old white female with dementia, came back in with increasing weakness and inability to self-care, family to care for her at home. CBC, chemistry profile, and TSH were unremarkable. COVID serology, flu serology was negative. Head CT and chest x-ray showed no acute change and sonogram of the leg showed no significant stenosis. She was cared for in the usual manner and did not require any unusual medications and difficulty for social media specialist is finding placement, was finally accomplished. She is discharged for long-term care at this point, the jail care was denied by her insurance. FINAL DIAGNOSES: 1. Generalized weakness. 2. Advanced Alzheimer dementia. OPERATIONS, PROCEDURES, COMPLICATIONS, AND CONSULTATIONS: None. DISPOSITION: Home meds remain the same. Activity as tolerated, full code per family. MARTINA DR: Daniel TID: [id number]
--- NOTE | 2021-11-20 10:07 | NUR ---
SW following. Discussed with RN, insurance approved transfer to SNF, discharge orders faxed. [facility] stating they need physically signed discharge orders by physician due to [facility] supposedly not accepting electronically signed - MARC explained this is what we send to every single facility and have done for years. Awaiting transportation time. MARC will continue to follow. Addendum: 11/20/21 at 1032 by SURJIT TRAN [place]) arranged transportation for [address] pick[address]. RN and family notified.
[2021-11-20 11:00] VITALS: BP 88/64
--- NOTE | 2021-11-20 11:05 | NUR ---
Report given to Vee NAVA at [facility].
--- NOTE | 2021-11-20 11:15 | NUR ---
Pt in bed visiting with daughter. Cont. monitor.
--- NOTE | 2021-11-20 11:40 | NUR ---
Discharged to [facility] by cornelio lopez
== END 2021-11-20 11:40 | DRG 947 ==
LOC: ER 17:15 → 4 NORTH 20:49
PROVIDERS: ADMIT Family Medicine; ATTEND Family Medicine
DX: R53.1 Weakness (principal); E43 Unspecified severe protein-calorie malnutrition; G30.9 Alzheimer's disease, unspecified; F02.80 Dementia in other diseases classified elsewhere, unspecified severity, without behavioral disturbance, psychotic disturbance, mood disturbance, and anxiety; M81.0 Age-related osteoporosis without current pathological fracture; Z20.822 Contact with and (suspected) exposure to COVID-19; Z88.0 Allergy status to penicillin; Z68.21 Body mass index [BMI] 21.0-21.9, adult
CPT/HCPCS: 36415; 70450; 71045; 80053; 81001; 82962; 83605; 83735; 83880; 84443; 84484; 85025; 85610; 87428; 93005; 93923; 96360; J7030; U0003; 97110-GP; 97116-GP; 97530-GO; 97530-GP; 97535-GO; 99285-25; G0378

== ENCOUNTER 2022-01-01 08:31 | Inpatient (IN) | payer MEDICARE ==
[~2022-01-01] VITALS: Ht 160 cm; Wt 62.3 kg
[~2022-01-01 08:31] MED LIST changes: +TRAM50TA PO
[2022-01-01 09:15] LABS: BASO # 0.1 x10^3/uL (0.0-0.2); BASO % 2 % (0-3); EOS # 0.2 x10^3/uL (0.0-0.7); EOS % 2 % (0-3); HEMOGLOBIN 8.4 g/dL (12.0-15.5); LYMPH # 1.1 x10^3/uL (1.0-4.8); LYMPH % 11 % (24-48); MEAN CORPUSCULAR HEMOGLOBIN 29 pg (25-35); MEAN CORPUSCULAR HGB CONC 32 g/dL (31-37); MEAN CORPUSCULAR VOLUME 89 fL (79-100); MONO # 0.9 x10^3/uL (0.0-1.1); MONO % 10 % (0-9); NEUT # 7.6 x10^3/uL (1.8-7.7); NEUT % 76 % (31-73); PLATELET COUNT 529 x10^3/uL (140-400); RED BLOOD COUNT 2.93 x10^6/uL (3.50-5.40); WHITE BLOOD COUNT 9.9 x10^3/uL (4.0-11.0)
[2022-01-01] MEDS ORDERED: IV NORMAL SALINE 1000ML BAG 1,000 ML IV ONE ×2 (09:15→15:00)
[2022-01-01 09:28] LABS: CALCIUM 8.8 mg/dL (8.5-10.1); CREATININE 0.8 mg/dL (0.6-1.0); GFR 67.5; POTASSIUM 4.3 mmol/L (3.5-5.1)
[2022-01-01] MEDS ORDERED: cefTRIAXone IV Push 1 GM VIAL. IVP ONE (09:30)
--- NOTE | 2022-01-01 09:32 | PHYS DOC ---
Past Medical History Past Medical History: Dementia, Other Additional Past Medical Histor: OSTEOPOROSIS Past Surgical History: Other Additional Past Surgical Histo: LEFT HIP, RIGHT WRIST Smoking Status: Never Smoker Alcohol Use: None Drug Use: None General Adult EDM: Chief Complaint: ALTERED MENTAL STATUS HPI: HPI: Patient is an 89-year-old female who presents today with mental status change. Patient according to the daughter who is at the bedside resides at a long-term care facility and have been there since December 23, daughter states that patient was here couple days ago and had a right hip fracture which was surgically repaired, she was then discharged to a long-term care for which she has been there since December 23, patient according to the daughter has had an indwelling Hamilton catheter since yesterday when it was removed, according to the daughter she had some urine tested at the time and was told she had a urinary tract infection was started on and some antibiotics but over the last 2 days patient's had a decline in mental status and today she is not on verbal. Information received from the long-term care facility patient has had a decrease in ADLs over the last couple of days her she has an afebrile but tachycardic, she was started on Cipro recently for her UTI as mentioned before. Patient was unable to participate in the HPI or the review of systems due to decrease in mental status. Review of Systems: Review of Systems: See HPI for review of systems Heart Score: C/O Chest Pain: No Risk Factors: Risk Factors: DM, Current or recent (<one month) smoker, HTN, HLP, family history of CAD, obesity. Risk Scores: Score 0 - 3: 2.5% MACE over next 6 weeks - Discharge Home Score 4 - 6: 20.3% MACE over next 6 weeks - Admit for Clinical Observation Score 7 - 10: 72.7% MACE over next 6 weeks - Early Invasive Strategies Current Medications: Current Medications Medications (Trade) Dose Ordered Sig/Danielle Start Time Stop Time Status Last Admin Dose Admin Ceftriaxone Sodium (Rocephin) 1 gm 1X ONCE 01/01/22 09:30 01/01/22 09:31 Sodium Chloride 1,000 ml @ 999 mls/hr 1X ONCE 01/01/22 09:15 01/01/22 10:15 01/01/22 09:13 999 MLS/HR Allergies: Allergies: Allergies Coded Allergies Type Severity Reaction Last Updated Verified Penicillins Allergy Intermediate Rash 12/21/21 Yes Physical Exam: PE: Constitutional: Frail elderly female in no acute distress with eyes closed HENT: Normocephalic, atraumatic, bilateral external ears normal, oropharynx dry, no oral exudates, nose normal. [] Eyes: PERRLA, EOMI, conjunctiva normal, no discharge. [] Neck: Normal range of motion, no tenderness, supple, no stridor. [] Cardiovascular:Heart rate regular rhythm, no murmur [] Lungs & Thorax: Bilateral breath sounds d diminished Abdomen: Bowel sounds normal, soft, no tenderness, no masses, no pulsatile ashley s. [] Skin: Warm, dry, no erythema, no rash. [] Back: No tenderness, no CVA tenderness. [] Extremities: Surgical dressing in place on the right hip area large area of ecchymosis noted on the right thigh, peripheral pulses are 1+ Neurologic: Patient is somnolent will open eyes to tactile stimuli, will not follow commands is nonverbal Psychologic: Affect is flat Current Patient Data: Labs: Laboratory Tests Test 01/01/22 08:50 White Blood Count 9.9 x10^3/uL (4.0-11.0) Red Blood Count 2.93 x10^6/uL (3.50-5.40) L Hemoglobin 8.4 g/dL (12.0-15.5) L Hematocrit 26.0 % (36.0-47.0) L Mean Corpuscular Volume 89 fL (79-100) Mean Corpuscular Hemoglobin 29 pg (25-35) Mean Corpuscular Hemoglobin Concent 32 g/dL (31-37) Red Cell Distribution Width 15.0 % (11.5-14.5) H Platelet Count 529 x10^3/uL (140-400) H Neutrophils (%) (Auto) 76 % (31-73) H Lymphocytes (%) (Auto) 11 % (24-48) L Monocytes (%) (Auto) 10 % (0-9) H Eosinophils (%) (Auto) 2 % (0-3) Basophils (%) (Auto) 2 % (0-3) Neutrophils # (Auto) 7.6 x10^3/uL (1.8-7.7) Lymphocytes # (Auto) 1.1 x10^3/uL (1.0-4.8) Monocytes # (Auto) 0.9 x10^3/uL (0.0-1.1) Eosinophils # (Auto) 0.2 x10^3/uL (0.0-0.7) Basophils # (Auto) 0.1 x10^3/uL (0.0-0.2) Laboratory Tests 01/01/22 08:50 Vital Signs: Vital Signs Date Time Temp Pulse Resp B/P (MAP) Pulse Ox O2 Delivery O2 Flow Rate FiO2 01/01/22 11:06 95 149/73 (98) 96 Room Air 01/01/22 10:51 96 164/80 (108) 98 Room Air 01/01/22 10:21 98 24 171/79 (109) 96 Room Air 01/01/22 09:51 97 24 158/80 (106) 97 Room Air 01/01/22 09:21 91 26 154/69 (97) 97 Room Air 01/01/22 08:51 93 24 131/60 (83) 98 Room Air 01/01/22 08:40 97.8 106 24 138/70 (92) 97 Room Air 97.8 Vital Signs Date Time Temp Pulse Resp B/P (MAP) Pulse Ox O2 Delivery O2 Flow Rate FiO2 01/01/22 08:40 97.8 106 24 138/70 (92) 97 Room Air 97.8 Vital Signs Date Time Temp Pulse Resp B/P (MAP) Pulse Ox O2 Delivery O2 Flow Rate FiO2 01/01/22 08:40 97.8 106 24 138/70 (92) 97 Room Air 97.8 EKG: EKG: EKG done at [address] Parada at 935 shows sinus rhythm at a rate of 94 with a RI interval of 130 ms with a QTC of 415 no STEMI [] Radiology/Procedures: Radiology/Procedures: REASON: mental staus change PROCEDURE: CT HEAD WO CONTRAST CT Head without contrast 01/01/2022 9:31 AM Indication: Altered mental status Comparison: CT head without contrast November 13, 2021 Findings: No intracranial hemorrhage is seen. No evidence of acute territorial infarct is seen. Note that CT is limited in sensitivity for acute ischemia. Similar senescent atrophic changes are noted. Redemonstration of prominent patchy periventricular and deep white matter hypoattenuation which is nonspecific, but most commonly relates to chronic small vessel disease. No abnormal extra axial fluid collection is identified. No mass effect or midline shift is seen. No acute osseous abnormalities are seen. Impression: 1. No acute intracranial process identified 2. Similar senescent atrophic changes and changes of chronic small vessel disease as described CT DOSING PQRS STATEMENT: One or more of the following individualized dose reduction techniques were utilized for this examination: 1. Automated exposure control 2. Adjustment of the mA and/or kV according to patient size 3. Use of iterative reconstruction technique Electronically signed by: Gonzalez Beasley MD (01/01/2022 9:53 AM) [id number] REASON: mental status change PROCEDURE: PORTABLE CHEST 1V Single view of the chest. 01/01/2022 9:27 AM Indication: Altered mental status Comparison: Chest radiograph December 20, 2021 Findings: There is no focal consolidation. There is no pleural effusion or pneumothorax. The cardiomediastinal silhouette and pulmonary vasculature are within normal limits. No acute osseous abnormalities are seen. Impression: No evidence of acute cardiopulmonary process. Electronically signed by: Gonzalez Beasley MD (01/01/2022 9:50 AM) [id number] [] Course & Med Decision Making: Course & Med Decision Making Pertinent Labs and Imaging studies reviewed. (See chart for details) [address] Sanderson with the hospitalist group regarding this patient's laboratory findings and assessment he is a agreeable to admitting this patient for UTI and for change in mental status and for elevated troponin. I did talk with the daughter at the bedside and she is agreeable with the plan of care. Patient will be given a dose of Rocephin here in the department and she is already been given a liter of normal saline. Dragon Disclaimer: Dragon Disclaimer: This electronic medical record was generated, in whole or in part, using a voice recognition dictation system. Departure Departure Impression: Primary Impression: Urinary tract infection Qualified Codes: N30.01 - Acute cystitis with hematuria Additional Impressions: Elevated troponin Altered mental status Qualified Codes: R41.82 - Altered mental status, unspecified Disposition: ADMITTED INPATIENT Admitting Physician: HIMS Condition: STABLE Referrals: VENKAT JONES MD (PCP) MARTHA JONES APRN January 01, 2022 09:32
[2022-01-01 09:33] LABS: INFLUENZA A PATIENT NEGATIVE (NEGATIVE); INFLUENZA B PATIENT NEGATIVE (NEGATIVE)
[2022-01-01 09:34] LABS: ALBUMIN 2.2 g/dL (3.4-5.0); ALBUMIN/GLOBULIN RATIO 0.5 (1.0-1.7); TOTAL BILIRUBIN 0.6 mg/dL (0.2-1.0); TOTAL PROTEIN 6.8 g/dL (6.4-8.2)
[2022-01-01 09:45] LABS: BACTERIA,URINE MODERATE /HPF (0-FEW); RBC,URINE 20-40 /HPF (0-2)
[2022-01-01 09:46] LABS: AMORPHOUS SEDIMENT,UR PRESENT /HPF
--- NOTE | 2022-01-01 09:49 | EKG ---
[facility] [address] [place] [address] Test Date: 2022-01-01 Test Time: 09:30:40 Pat Name: NEREIDA TATUM Department: Room: Gender: F Gsa Coordinator: : 1930 Requested By: MARTHA JONES Order Number: [id number] Reading MD: Eric Mcnamara MD Measurements Intervals [place] Rate: 94 P: 62 ID: [id number] QRS: 23 QRSD: 76 T: 34 QT: 328 QTc: 415 Interpretive Statements SINUS RHYTHM Electronically Signed On 01-05-2022 9:07:26 CDT by Eric Mcnamara MD
--- NOTE | 2022-01-01 09:53 | RAD ---
Single view of the chest. 01/01/2022 9:27 AM Indication: Altered mental status Comparison: Chest radiograph December 20, 2021 Findings: There is no focal consolidation. There is no pleural effusion or pneumothorax. The cardiome diastinal silhouette and pulmonary vasculature are within normal limits. No acute osseous abnormaliti es are seen. Impression: No evidence of acute cardiopulmonary process. Electronically signed by: Gonzalez Beasley MD (01/01/2022 9:50 AM) [id number]
--- NOTE | 2022-01-01 09:55 | RAD ---
CT Head without contrast 01/01/2022 9:31 AM Indication: Altered mental status Comparison: CT head without contrast November 13, 2021 Findings: No intracranial hemorrhage is seen. No evidence of acute territorial infarct is seen. Note that CT is limited in sensitivity for acute ischemia. Similar senescent atrophic changes are noted. R edemonstration of prominent patchy periventricular and deep white matter hypoattenuation which is non specific, but most commonly relates to chronic small vessel disease. No abnormal extra axial fluid c ollection is identified. No mass effect or midline shift is seen. No acute osseous abnormalities are seen. Impression: 1. No acute intracranial process identified 2. Similar senescent atrophic changes and changes of chronic small vessel disease as described CT DOSING PQRS STATEMENT: One or more of the following individualized dose reduction techniques were utilized for this examinat ion: 1. Automated exposure control 2. Adjustment of the mA and/or kV according to patient size 3. Use of iterative reconstruction technique Electronically signed by: Gonzalez Beasley MD (01/01/2022 9:53 AM) [id number]
[2022-01-01 11:25] VITALS: BP 159/82
[2022-01-01] MEDS ORDERED: ACET500T68 PO (11:46)
[2022-01-01] MEDS ORDERED: CIPR500S2 PO (11:46)
--- NOTE | 2022-01-01 14:44 | PDOC1 ---
History and Physical Date of Admission Date of Admission DATE: 01/01/22 TIME: 14:21 Identification/Chief Complaint Chief Complaint AMS Source Source: Caregiver, Chart review History of Present Illness History of Present Illness Patient is a 89-year-old female with past medical history dementia, who presents from her [facility] due to change in mental status. Reportedly she stopped speaking yesterday and is no longer following commands. Patient is usually able to feed herself, but had to be fed her meals today. Upon evaluation in the ED she was tachycardic with heart rate 106. Labs showed WBC 9.9, hemoglobin 8.4, hematocrit 26, platelets 529, BUN 23, creatinine 0.8, BUN/creatinine ratio 29, AST 90, ALT 110, troponin 201, albumin 2.2. Urinalysis was positive for nitrites, large leukocyte esterase, WBCs 1120, with moderate urine bacteria. Past Medical History Cardiovascular: No pertinent hx Pulmonary: No pertinent hx CENTRAL NERVOUS SYSTEM: Dementia Musculoskeletal: Osteoarthritis Renal/: Urinary Incontinence Past Surgical History Past Surgical History Bilateral hip surgery Family History Family History Reviewed with patient's family but denies significant past medical history Social History Smoke: No ALCOHOL: none Drugs: None Current Problem List Problem List Problems Medical Problems: (1) Altered mental status Status: Acute (2) Elevated troponin Status: Acute (3) Urinary tract infection Status: Acute Current Medications Current Medications Current Medications Sodium Chloride 1,000 ml @ 999 mls/hr 1X ONCE IV Last administered on 01/01/22at 09:13; Start 01/01/22 at 09:15; Stop 01/01/22 at 10:15; Status DC Ceftriaxone Sodium (Rocephin) 1 gm 1X ONCE IVP Last administered on 01/01/22at 10:24; Start 01/01/22 at 09:30; Stop 01/01/22 at 09:31; Status DC Active Scripts Active Tramadol Hcl 50 Mg Tablet 50 Mg PO PRN Q6HRS PRN 14 Days Reported Cipro (Ciprofloxacin) 500 Mg/5 Ml Milagro.mc.rec 500 Mg PO BID 7 Days Acetaminophen 500 Mg Tablet 1 Tab PO PRN Q6HRS PRN 15 Days Mirtazapine 15 Mg Tablet 1 Tab PO QHS Namenda (Memantine Hcl) 10 Mg Tablet 1 Tab PO BID Vitamin E (Vitamin E Acetate) 1,000 Unit Capsule 1 Cap PO DAILYWBKFT 30 Days Multivitamins With Minerals (Multivitamin With Minerals) 1 Each Tablet 1 Tab PO DAILY 30 Days Allergies Allergies: Coded Allergies: Penicillins (Verified Allergy, Intermediate, Rash, 12/21/21) ROS Review of System Unable to obtain due to clinical condition Physical Exam Physical Exam General: Alert, Cooperative, No acute distress. Cachectic appearing. HEENT: PERRLA, EOMI Lungs: Clear to auscultation, Normal air movement Heart: RRR, no murmurs Cardiovascular: S1, S2 Abdomen: Normal bowel sounds, Soft, No tenderness Extremities: No clubbing, No cyanosis Skin: No rashes, No significant lesion Neuro: Normal speech, Normal tone, Sensation intact Psych/Mental Status: Mental status NL, Mood NL Vitals Vitals Vital Signs Date Time Temp Pulse Resp B/P (MAP) Pulse Ox O2 Delivery O2 Flow Rate FiO2 01/01/22 11:25 98.4 96 24 159/82 (107) 97 Room Air 98.4 Labs Labs Laboratory Tests Test 01/01/22 08:50 01/01/22 09:08 01/01/22 09:20 01/01/22 11:55 White Blood Count 9.9 x10^3/uL (4.0-11.0) Red Blood Count 2.93 x10^6/uL (3.50-5.40) Hemoglobin 8.4 g/dL (12.0-15.5) Hematocrit 26.0 % (36.0-47.0) Mean Corpuscular Volume 89 fL (79-100) Mean Corpuscular Hemoglobin 29 pg (25-35) Mean Corpuscular Hemoglobin Concent 32 g/dL (31-37) Red Cell Distribution Width 15.0 % (11.5-14.5) Platelet Count 529 x10^3/uL (140-400) Neutrophils (%) (Auto) 76 % (31-73) Lymphocytes (%) (Auto) 11 % (24-48) Monocytes (%) (Auto) 10 % (0-9) Eosinophils (%) (Auto) 2 % (0-3) Basophils (%) (Auto) 2 % (0-3) Neutrophils # (Auto) 7.6 x10^3/uL (1.8-7.7) Lymphocytes # (Auto) 1.1 x10^3/uL (1.0-4.8) Monocytes # (Auto) 0.9 x10^3/uL (0.0-1.1) Eosinophils # (Auto) 0.2 x10^3/uL (0.0-0.7) Basophils # (Auto) 0.1 x10^3/uL (0.0-0.2) Sodium Level 139 mmol/L (136-145) Potassium Level 4.3 mmol/L (3.5-5.1) Chloride Level 104 mmol/L (98-107) Carbon Dioxide Level 33 mmol/L (21-32) Anion Gap 2 (6-14) Blood Urea Nitrogen 23 mg/dL (7-20) Creatinine 0.8 mg/dL (0.6-1.0) Estimated GFR (Cockcroft-Gault) 67.5 BUN/Creatinine Ratio 29 (6-20) Glucose Level 101 mg/dL (70-99) Lactic Acid Level 0.9 mmol/L (0.4-2.0) Calcium Level 8.8 mg/dL (8.5-10.1) Total Bilirubin 0.6 mg/dL (0.2-1.0) Aspartate Amino Transf (AST/SGOT) 90 U/L (15-37) Alanine Aminotransferase (ALT/SGPT) 110 U/L (14-59) Alkaline Phosphatase 154 U/L (46-116) Troponin I High Sensitivity 301 ng/L (4-50) 283 ng/L (4-50) QO-Bro-M-Type Natriuretic Peptide 386 pg/mL (0-449) Total Protein 6.8 g/dL (6.4-8.2) Albumin 2.2 g/dL (3.4-5.0) Albumin/Globulin Ratio 0.5 (1.0-1.7) Influenza Type A Antigen Negative (NEGATIVE) Influenza Type B Antigen Negative (NEGATIVE) SARS-CoV-2 Antigen (Rapid) Negative (NEGATIVE) Urine Collection Type U cath Urine Color (Auto) Yellow Urine Turbidity Hazy Urine pH (Auto) 5.5 (<5.0-8.0) Urine Specific [place] 1.025 (1.000-1.030) Urine Protein (Auto) 30 mg/dL (Negative) Urine Glucose (Auto)(UA) Negative mg/dL (Negative) Urine Ketones (Auto) Negative mg/dL (Negative) Urine Blood (Auto) Small (Negative) Urine Nitrite Positive (Negative) Urine Bilirubin (Auto) Negative (Negative) Urine Urobilinogen (Auto) Normal mg/dL (Normal) Urine Leukocyte Esterase (Auto) Large (Negative) Urine RBC 20-40 /HPF (0-2) Urine WBC 11-20 /HPF (0-4) Urine Transitional Epithelial Cells Occ /LPF Urine Amorphous Sediment Present /HPF Urine Bacteria Moderate /HPF (0-FEW) Laboratory Tests Test 01/01/22 08:50 01/01/22 09:08 01/01/22 09:20 01/01/22 11:55 White Blood Count 9.9 x10^3/uL (4.0-11.0) Red Blood Count 2.93 x10^6/uL (3.50-5.40) Hemoglobin 8.4 g/dL (12.0-15.5) Hematocrit 26.0 % (36.0-47.0) Mean Corpuscular Volume 89 fL (79-100) Mean Corpuscular Hemoglobin 29 pg (25-35) Mean Corpuscular Hemoglobin Concent 32 g/dL (31-37) Red Cell Distribution Width 15.0 % (11.5-14.5) Platelet Count 529 x10^3/uL (140-400) Neutrophils (%) (Auto) 76 % (31-73) Lymphocytes (%) (Auto) 11 % (24-48) Monocytes (%) (Auto) 10 % (0-9) Eosinophils (%) (Auto) 2 % (0-3) Basophils (%) (Auto) 2 % (0-3) Neutrophils # (Auto) 7.6 x10^3/uL (1.8-7.7) Lymphocytes # (Auto) 1.1 x10^3/uL (1.0-4.8) Monocytes # (Auto) 0.9 x10^3/uL (0.0-1.1) Eosinophils # (Auto) 0.2 x10^3/uL (0.0-0.7) Basophils # (Auto) 0.1 x10^3/uL (0.0-0.2) Sodium Level 139 mmol/L (136-145) Potassium Level 4.3 mmol/L (3.5-5.1) Chloride Level 104 mmol/L (98-107) Carbon Dioxide Level 33 mmol/L (21-32) Anion Gap 2 (6-14) Blood Urea Nitrogen 23 mg/dL (7-20) Creatinine 0.8 mg/dL (0.6-1.0) Estimated GFR (Cockcroft-Gault) 67.5 BUN/Creatinine Ratio 29 (6-20) Glucose Level 101 mg/dL (70-99) Lactic Acid Level 0.9 mmol/L (0.4-2.0) Calcium Level 8.8 mg/dL (8.5-10.1) Total Bilirubin 0.6 mg/dL (0.2-1.0) Aspartate Amino Transf (AST/SGOT) 90 U/L (15-37) Alanine Aminotransferase (ALT/SGPT) 110 U/L (14-59) Alkaline Phosphatase 154 U/L (46-116) Troponin I High Sensitivity 301 ng/L (4-50) 283 ng/L (4-50) WH-Ymz-N-Type Natriuretic Peptide 386 pg/mL (0-449) Total Protein 6.8 g/dL (6.4-8.2) Albumin 2.2 g/dL (3.4-5.0) Albumin/Globulin Ratio 0.5 (1.0-1.7) Influenza Type A Antigen Negative (NEGATIVE) Influenza Type B Antigen Negative (NEGATIVE) SARS-CoV-2 Antigen (Rapid) Negative (NEGATIVE) Urine Collection Type U cath Urine Color (Auto) Yellow Urine Turbidity Hazy Urine pH (Auto) 5.5 (<5.0-8.0) Urine Specific [place] 1.025 (1.000-1.030) Urine Protein (Auto) 30 mg/dL (Negative) Urine Glucose (Auto)(UA) Negative mg/dL (Negative) Urine Ketones (Auto) Negative mg/dL (Negative) Urine Blood (Auto) Small (Negative) Urine Nitrite Positive (Negative) Urine Bilirubin (Auto) Negative (Negative) Urine Urobilinogen (Auto) Normal mg/dL (Normal) Urine Leukocyte Esterase (Auto) Large (Negative) Urine RBC 20-40 /HPF (0-2) Urine WBC 11-20 /HPF (0-4) Urine Transitional Epithelial Cells Occ /LPF Urine Amorphous Sediment Present /HPF Urine Bacteria Moderate /HPF (0-FEW) Images Images PATIENT: NEREIDA TATUM ACCOUNT: [id number] : 1930 LOCATION: ER AGE: 89 SEX: F EXAM STATUS: REG ER ORD. PHYSICIAN: MARTHA JONES APRN REASON: mental status change PROCEDURE: PORTABLE CHEST 1V Single view of the chest. 01/01/2022 9:27 AM Indication: Altered mental status Comparison: Chest radiograph December 20, 2021 Findings: There is no focal consolidation. There is no pleural effusion or pneumothorax. The cardiomediastinal silhouette and pulmonary vasculature are within normal limits. No acute osseous abnormalities are seen. Impression: No evidence of acute cardiopulmonary process. PATIENT: NEREIDA TATUM ACCOUNT: [id number] : 1930 LOCATION: ER AGE: 89 SEX: F EXAM STATUS: REG ER ORD. PHYSICIAN: MARTHA JONES APRN REASON: mental staus change PROCEDURE: CT HEAD WO CONTRAST CT Head without contrast 01/01/2022 9:31 AM Indication: Altered mental status Comparison: CT head without contrast November 13, 2021 Findings: No intracranial hemorrhage is seen. No evidence of acute territorial infarct is seen. Note that CT is limited in sensitivity for acute ischemia. Similar senescent atrophic changes are noted. Redemonstration of prominent patchy periventricular and deep white matter hypoattenuation which is nonspecific, but most commonly relates to chronic small vessel disease. No abnormal extra axial fluid collection is identified. No mass effect or midline shift is seen. No acute osseous abnormalities are seen. Impression: 1. No acute intracranial process identified 2. Similar senescent atrophic changes and changes of chronic small vessel disease as described VTE Prophylaxis Ordered VTE Prophylaxis Devices: No VTE Pharmacological Prophylaxi: Yes Assessment/Plan Assessment/Plan Sepsis Acute cystitis Dehydration Transaminitis Elevated troponins Severe malnutrition Plan: Patient received 1 g Rocephin and 1 L of normal saline in ED Will continue antibiotics and additional fluids provide sepsis fluid bolus Urine culture and blood cultures pending Transaminitis and elevated troponins likely secondary to sepsis. We will continue to trend troponins. If they continue to climb will consult cardiology. Will resume her home medications we can at this time FEN - Cardiac diet PPX - Heparin FULL CODE/surrogate decision-maker is her daughter (Cindy Jackson) Dispo - inpatient for above Justifications for Admission Other Justification MIGUEL MADISON MD January 01, 2022 14:44
[2022-01-01 15:00] VITALS: BP 138/54
[2022-01-01] MEDS ORDERED: ACETAMINOPHEN 325 MG TABLET. PO PRN (15:00)
[2022-01-01] MEDS ORDERED: MAG HYDROX/ALUMINUM HYD/SIMETH 30 ML ORAL.SUSP PO PRN (15:00)
[2022-01-01] MEDS ORDERED: traMADol 50 MG TABLET PO PRN (15:00)
[2022-01-01] MEDS ORDERED: MORPHINE SULFATE 2 MG/ML INJ. IV PRN (15:00)
[2022-01-01] MEDS ORDERED: HYDROcodone/APAP 5/325MG 1 TAB TABLET PO PRN (15:00)
[2022-01-01] MEDS ORDERED: ONDANSETRON PF 4 MG/2 ML VIAL. IVP PRN (15:00)
[2022-01-01 19:00] VITALS: BP 120/56
[2022-01-01] MEDS: MEMANTINE 10 MG TABLET. PO SCH ×2 (21:00→21:09)
[2022-01-01] MEDS: MIRTAZAPINE 15 MG TABLET PO SCH ×2 (21:00→21:09)
[2022-01-01] MEDS: HEPARIN for SUB-Q USE 5,000 UNIT/ML VIAL. SQ SCH (21:11)
--- NOTE | 2022-01-01 22:16 | NUR ---
This RN did not feel comfortable administering night medication to pt. Pt was pocketing pills. Speech eval consult is in for tomorrow
[2022-01-01 22:49] VITALS: BP 118/58
[2022-01-02 02:50] VITALS: BP 142/64
[2022-01-02 07:00] VITALS: BP 136/58
[2022-01-02] MEDS: MEMANTINE 10 MG TABLET. PO SCH ×2 (08:48→20:49)
[2022-01-02] MEDS: HEPARIN for SUB-Q USE 5,000 UNIT/ML VIAL. SQ SCH ×2 (08:51→20:59)
[2022-01-02] MEDS: cefTRIAXone IV Push 1 GM VIAL. IVP SCH (10:44)
[2022-01-02 11:00] VITALS: BP 143/65
--- NOTE | 2022-01-02 14:07 | PDOC ---
[employer] PROGRESS NOTE Date of Service DOS: DATE: 01/02/22 TIME: 14:03 Chief Complaint Chief Complaint Sepsis Acute cystitis Dehydration Transaminitis Elevated troponins Severe malnutrition History of Present Illness History of Present Illness 01/02: Patient seen with daughter at bedside. She is still not spoken yet, and daughter states she has not spoken since Wednesday12/31/21. She does have a little more alert and daughter states she is moving her arms more. Tomorrow should be day 3 of Rocephin. Will await urine cultures to ensure complete treatment. PT/OT. Vitals/I&O Vitals/I&O: Vital Signs Date Time Temp Pulse Resp B/P (MAP) Pulse Ox O2 Delivery O2 Flow Rate FiO2 01/02/22 11:00 99.5 91 20 143/65 (91) 97 Room Air 99.5 I & O 01/01/22 01/01/22 01/02/22 15:00 23:00 07:00 Intake Total 1000 ml Balance 1000 ml Physical Exam General: Alert, No acute distress Heart: Regular rate Lungs: Clear Abdomen: Soft, No tenderness Extremities: No cyanosis Skin: No rashes Labs Labs: Laboratory Tests Test 01/01/22 14:57 Troponin I High Sensitivity 250 ng/L (4-50) Assessment and Plan Assessmemt and Plan Problems Medical Problems: (1) Altered mental status Status: Acute (2) Elevated troponin Status: Acute (3) Urinary tract infection Status: Acute Comment Review of Relevant I have reviewed the following items elaine (where applicable) has been applied. Medications: Current Medications Medications (Trade) Dose Ordered Sig/Danielle Route PRN Reason Start Time Stop Time Status Last Admin Dose Admin Sodium Chloride 1,000 ml @ 1,000 mls/hr 1X ONCE IV 01/01/22 15:00 01/01/22 15:59 DC 01/01/22 15:20 Ceftriaxone Sodium (Rocephin) 1 gm Q24H IVP 01/02/22 10:00 01/02/22 10:44 Memantine (Namenda) 10 mg BID PO 01/01/22 21:00 01/02/22 08:48 Heparin Sodium (Porcine) (Heparin Sodium) 5,000 unit Q12HR SQ 01/01/22 21:00 01/02/22 08:51 Justifications for Admission Other Justification MIGUEL MADISON MD January 02, 2022 14:07
[2022-01-02 15:00] VITALS: BP 136/65
--- NOTE | 2022-01-02 16:01 | NUR ---
SS following for discharge planning. SS reviewed pt chart and discussed with pt RN. Pt is LTC resident from [facility] [place], ; fax [phone]. Pt is currently on room air. Pt on IV Rocephin. COVID19 negative. PT/OT/ST ordered. Clinical updates sent to [facility]. SS will continue to follow for discharge planning.
[2022-01-02 19:00] VITALS: BP 144/66
[2022-01-02] MEDS: MIRTAZAPINE 15 MG TABLET PO SCH (20:49)
[2022-01-02 23:00] VITALS: BP 145/60
[2022-01-03 03:00] VITALS: BP 148/61
[2022-01-03 07:00] VITALS: BP 139/61
[2022-01-03 08:08] LABS: ALBUMIN 1.8 g/dL (3.4-5.0); ALBUMIN/GLOBULIN RATIO 0.5 (1.0-1.7); CALCIUM 8.2 mg/dL (8.5-10.1); CREATININE 0.6 mg/dL (0.6-1.0); GFR 94.1; TOTAL BILIRUBIN 0.4 mg/dL (0.2-1.0); TOTAL PROTEIN 5.8 g/dL (6.4-8.2)
[2022-01-03] MEDS: MEMANTINE 10 MG TABLET. PO SCH ×3 (08:59→21:00)
[2022-01-03] MEDS: HEPARIN for SUB-Q USE 5,000 UNIT/ML VIAL. SQ SCH ×2 (09:04→21:04)
[2022-01-03 11:00] VITALS: BP 135/55
[2022-01-03] MEDS: cefTRIAXone IV Push 1 GM VIAL. IVP SCH (11:22)
--- NOTE | 2022-01-03 12:22 | PDOC ---
[employer] PROGRESS NOTE Date of Service DOS: DATE: 01/03/22 TIME: 12:20 Chief Complaint Chief Complaint Sepsis Acute cystitis Dehydration Transaminitis Elevated troponins Severe malnutrition History of Present Illness History of Present Illness 01/03 Evaluate examined at bedside. Daughter present as well. Did speak a few words to her daughter last night but has not spoken since. Still with quite a bit right-sided weakness almost in line with stroke but at this point would be well out of the window for any sort of interventions. Continue antibiotics. We will see if nida from recent left hip surgery can be removed. Surgical site looks ok. Otherwise continue current, possible d/c back to facility early next week. Discussed with bedsideRN. 01/02: Patient seen with daughter at bedside. She is still not spoken yet, and daughter states she has not spoken since Wednesday12/31/21. She does have a l ittle more alert and daughter states she is moving her arms more. Tomorrow should be day 3 of Rocephin. Will await urine cultures to ensure complete treatment. PT/OT. Vitals/I&O Vitals/I&O: Vital Signs Date Time Temp Pulse Resp B/P (MAP) Pulse Ox O2 Delivery O2 Flow Rate FiO2 01/03/22 11:00 100.1 95 20 135/55 (81) 97 Room Air 100.1 I & O 01/02/22 01/02/22 01/03/22 15:00 23:00 07:00 Intake Total 240 ml 0 ml Output Total 200 ml Balance 240 ml -200 ml Physical Exam General: Alert, No acute distress Heart: Regular rate Lungs: Clear Abdomen: Soft, No tenderness Extremities: No cyanosis Skin: No rashes Labs Labs: Laboratory Tests Test 01/03/22 06:05 Sodium Level 140 mmol/L (136-145) Potassium Level 4.0 mmol/L (3.5-5.1) Chloride Level 106 mmol/L (98-107) Carbon Dioxide Level 28 mmol/L (21-32) Anion Gap 6 (6-14) Blood Urea Nitrogen 16 mg/dL (7-20) Creatinine 0.6 mg/dL (0.6-1.0) Estimated GFR (Cockcroft-Gault) 94.1 BUN/Creatinine Ratio 27 (6-20) Glucose Level 95 mg/dL (70-99) Calcium Level 8.2 mg/dL (8.5-10.1) Total Bilirubin 0.4 mg/dL (0.2-1.0) Aspartate Amino Transf (AST/SGOT) 76 U/L (15-37) Alanine Aminotransferase (ALT/SGPT) 106 U/L (14-59) Alkaline Phosphatase 151 U/L (46-116) Total Protein 5.8 g/dL (6.4-8.2) Albumin 1.8 g/dL (3.4-5.0) Albumin/Globulin Ratio 0.5 (1.0-1.7) Assessment and Plan Assessmemt and Plan Problems Medical Problems: (1) Altered mental status Status: Acute (2) Elevated troponin Status: Acute (3) Urinary tract infection Status: Acute Comment Review of Relevant I have reviewed the following items elaine (where applicable) has been applied. Justifications for Admission Other Justification ANDREI LUTHER MD January 03, 2022 12:22
[2022-01-03 15:03] VITALS: BP 141/61
[2022-01-03 19:00] VITALS: BP 129/58
[2022-01-03] MEDS: LACTOBACILLUS RHAMNOSUS GG 1 CAPSULE. PO SCH ×2 (20:57→21:00)
[2022-01-03] MEDS: MIRTAZAPINE 15 MG TABLET PO SCH ×2 (20:57→21:00)
[2022-01-03 23:02] VITALS: BP 130/70
[2022-01-04 03:03] VITALS: BP 117/82
[2022-01-04 07:00] VITALS: BP 139/66
[2022-01-04] MEDS: HEPARIN for SUB-Q USE 5,000 UNIT/ML VIAL. SQ SCH ×2 (09:00→20:28)
[2022-01-04] MEDS: MEMANTINE 10 MG TABLET. PO SCH ×2 (09:20→20:29)
[2022-01-04] MEDS: LACTOBACILLUS RHAMNOSUS GG 1 CAPSULE. PO SCH ×2 (09:20→20:29)
[2022-01-04] MEDS: cefTRIAXone IV Push 1 GM VIAL. IVP SCH (09:20)
[2022-01-04 11:00] VITALS: BP 117/46
--- NOTE | 2022-01-04 11:24 | PDOC ---
[employer] PROGRESS NOTE Date of Service DOS: DATE: 01/04/22 TIME: 11:23 Chief Complaint Chief Complaint Sepsis Acute cystitis Dehydration Transaminitis Elevated troponins Severe malnutrition History of Present Illness History of Present Illness 01/04 Patient evaluated examined at bedside. Noted nida from surgical site on right hip removed yesterday. Patient still pretty nonverbal this morning not able to follow commands. Still deficiencies on right side. Also having very minimal p.o. intake. Will start maintenance fluids for her. Continue therapy. Continue antibiotics for cystitis. Possible discharge back to facility in the next day or 2. Discussed with bedside RN 01/03 Evaluate examined at bedside. Daughter present as well. Did speak a few words to her daughter last night but has not spoken since. Still with quite a bit right-sided weakness almost in line with stroke but at this point would be well out of the window for any sort of interventions. Continue antibiotics. We will see if nida from recent left hip surgery can be removed. Surgical site looks ok. Otherwise continue current, possible d/c back to facility early next week. Discussed with bedsideRN. 01/02: Patient seen with daughter at bedside. She is still not spoken yet, and daughter states she has not spoken since Wednesday12/31/21. She does have a little more alert and daughter states she is moving her arms more. Tomorrow should be day 3 of Rocephin. Will await urine cultures to ensure complete treatment. PT/OT. Vitals/I&O Vitals/I&O: Vital Signs Date Time Temp Pulse Resp B/P (MAP) Pulse Ox O2 Delivery O2 Flow Rate FiO2 01/04/22 07:00 98.7 99 24 139/66 (90) 96 Room Air 98.7 I & O 01/03/22 01/03/22 01/04/22 15:00 23:00 07:00 Intake Total 200 ml 100 ml Output Total 250 ml 0 ml Balance 200 ml -150 ml 0 ml Physical Exam General: Alert, No acute distress Heart: Regular rate Lungs: Clear Abdomen: Soft, No tenderness Extremities: No cyanosis Skin: No rashes Assessment and Plan Assessmemt and Plan Problems Medical Problems: (1) Altered mental status Status: Acute (2) Elevated troponin Status: Acute (3) Urinary tract infection Status: Acute Comment Review of Relevant I have reviewed the following items elaine (where applicable) has been applied. Medications: Current Medications Medications (Trade) Dose Ordered Sig/Danielle Route PRN Reason Start Time Stop Time Status Last Admin Dose Admin Lactobacillus Rhamnosus (Culturelle) 1 cap BID PO 01/03/22 21:00 01/04/22 09:20 Justifications for Admission Other Justification ANDREI LUTHER MD January 04, 2022 11:24
[2022-01-04] MEDS ORDERED: IV DEXTROSE 5%-LACT RINGERS 1,000 ML IV ONE (11:30)
[2022-01-04 11:51] LABS: BASO # 0.1 x10^3/uL (0.0-0.2); BASO % 1 % (0-3); EOS # 0.2 x10^3/uL (0.0-0.7); EOS % 2 % (0-3); HEMATOCRIT 24.7 % (36.0-47.0); HEMOGLOBIN 8.1 g/dL (12.0-15.5); LYMPH # 0.7 x10^3/uL (1.0-4.8); LYMPH % 9 % (24-48); MEAN CORPUSCULAR HEMOGLOBIN 28 pg (25-35); MEAN CORPUSCULAR HGB CONC 33 g/dL (31-37); MEAN CORPUSCULAR VOLUME 87 fL (79-100); MONO # 0.8 x10^3/uL (0.0-1.1); MONO % 10 % (0-9); NEUT % 77 % (31-73); PLATELET COUNT 451 x10^3/uL (140-400); RED BLOOD COUNT 2.84 x10^6/uL (3.50-5.40); RED CELL DISTRIBUTION WIDTH 14.7 % (11.5-14.5); WHITE BLOOD COUNT 7.8 x10^3/uL (4.0-11.0)
[2022-01-04 11:55] LABS: ALBUMIN 1.8 g/dL (3.4-5.0); ALBUMIN/GLOBULIN RATIO 0.5 (1.0-1.7); CALCIUM 8.4 mg/dL (8.5-10.1); CREATININE 0.7 mg/dL (0.6-1.0); GFR 78.8; POTASSIUM 4.1 mmol/L (3.5-5.1); TOTAL BILIRUBIN 0.2 mg/dL (0.2-1.0); TOTAL PROTEIN 5.4 g/dL (6.4-8.2)
[2022-01-04 15:00] VITALS: BP 126/54
[2022-01-04 19:00] VITALS: BP 133/55
[2022-01-04] MEDS: MIRTAZAPINE 15 MG TABLET PO SCH (20:29)
[2022-01-04 23:03] VITALS: BP 144/63
[2022-01-05 03:11] VITALS: BP 131/63
[2022-01-05 07:00] VITALS: BP 133/55
[2022-01-05] MEDS: LACTOBACILLUS RHAMNOSUS GG 1 CAPSULE. PO SCH ×2 (08:19→21:00)
[2022-01-05] MEDS: cefTRIAXone IV Push 1 GM VIAL. IVP SCH (08:19)
[2022-01-05] MEDS: MEMANTINE 10 MG TABLET. PO SCH ×2 (08:19→21:00)
[2022-01-05] MEDS: HEPARIN for SUB-Q USE 5,000 UNIT/ML VIAL. SQ SCH ×2 (08:33→21:02)
[2022-01-05 11:00] VITALS: BP 137/62
--- NOTE | 2022-01-05 11:59 | PDOC2 ---
NEUROLOGY CONSULT Date of Service DOS: DATE: 01/05/22 TIME: 11:53 Reason for Consult Reason for Consult: Altered mental status Referring Physician Referring Physician: Dr. Saul Source Source: Caregiver (Daughter), Chart review History of Present Illness History of Present Illness The patient is an 89-year-old right-handed female who brought in from the correction 01/01 with altered mental status. She stopped speaking the day before admission, is no longer following commands. Patient is usually able to feed herself but now requires total assist. Daughter says the patient started developing dementia about 6 years ago with a more rapid decline in the last few months. I see from the hospital record that she was admitted twice in October with falls, then went to correction, had a right hip fracture repaired in November, and then returned this admission. There is no history of stroke, seizure, or head injury. She has been found this time to have tachycardia, leukocytosis, anemia, prerenal dysfunction, pyuria, and bacteriuria. She has been on antibiotics but there has not been much change. Past Medical History CENTRAL NERVOUS SYSTEM: Dementia Psych: Depression Renal/: UTI, Urinary Incontinence Endocrine: Osteoporosis Past Surgical History Past Surgical History: Total hip replacement (Right hip fracture) Family History Family History: Other (Father had dementia) Social History Social History , had been living on her own without any assistance until about 3 months ago, no alcohol or tobacco. Currently in the correction Current Medications Current Medications Current Medications Sodium Chloride 1,000 ml @ 999 mls/hr 1X ONCE IV Last administered on 01/01/22at 09:13; Start 01/01/22 at 09:15; Stop 01/01/22 at 10:15; Status DC Ceftriaxone Sodium (Rocephin) 1 gm 1X ONCE IVP Last administered on 01/01/22at 10:24; Start 01/01/22 at 09:30; Stop 01/01/22 at 09:31; Status DC Sodium Chloride 1,000 ml @ 1,000 mls/hr 1X ONCE IV Last administered on 01/01/22at 15:20; Start 01/01/22 at 15:00; Stop 01/01/22 at 15:59; Status DC Ceftriaxone Sodium (Rocephin) 1 gm Q24H IVP Last administered on 01/05/22at 0 8:19; Start 01/02/22 at 10:00 Memantine (Namenda) 10 mg BID PO Last administered on 01/05/22at 08:19; Start 01/01/22 at 21:00 Mirtazapine (Remeron) 15 mg QHS PO Last administered on 01/04/22at 20:29; Start 01/01/22 at 21:00 Tramadol HCl (Ultram) 50 mg PRN Q6HRS PRN PO MODERATE PAIN 4-6; Start 01/01/22 at 15:00 Ondansetron HCl (Zofran) 4 mg PRN Q6HRS PRN IVP NAUSEA/VOMITING; Start 01/01/22 at 15:00 Al Hydroxide/Mg Hydroxide (Mylanta Plus Xs) 30 ml PRN Q3HRS PRN PO HEARTBURN / GAS; Start 01/01/22 at 15:00 Morphine Sulfate (Morphine Sulfate) 2 mg PRN Q1HR PRN IV PAIN; Start 01/01/22 at 15:00 Acetaminophen/ Hydrocodone Bitart (Lortab 5/325) 1 tab PRN Q4HRS PRN PO MILD PAIN 1-3; Start 01/01/22 at 15:00 Acetaminophen (Tylenol) 650 mg PRN Q6HRS PRN PO Headaches, Temp > 101.5F; Start 01/01/22 at 15:00 Heparin Sodium (Porcine) (Heparin Sodium) 5,000 unit Q12HR SQ Last administered on 01/05/22at 08:33; Start 01/01/22 at 21:00 Lactobacillus Rhamnosus (Culturelle) 1 cap BID PO Last administered on 01/05/22at 08:19; Start 01/03/22 at 21:00 Dextrose/Lactated Ringer's 1,000 ml @ 75 mls/hr 1X ONCE IV Last administered on 01/04/22at 11:30; Start 01/04/22 at 11:30; Stop 01/05/22 at 00:49; Status DC Active Scripts Active Tramadol Hcl 50 Mg Tablet 50 Mg PO PRN Q6HRS PRN 14 Days Reported Cipro (Ciprofloxacin) 500 Mg/5 Ml Milagro.mc.rec 500 Mg PO BID 7 Days Acetaminophen 500 Mg Tablet 1 Tab PO PRN Q6HRS PRN 15 Days Mirtazapine 15 Mg Tablet 1 Tab PO QHS Namenda (Memantine Hcl) 10 Mg Tablet 1 Tab PO BID Vitamin E (Vitamin E Acetate) 1,000 Unit Capsule 1 Cap PO DAILYWBKFT 30 Days Multivitamins With Minerals (Multivitamin With Minerals) 1 Each Tablet 1 Tab PO DAILY 30 Days Allergies Allergies: Coded Allergies: Penicillins (Verified Allergy, Intermediate, Rash, 12/21/21) ROS Review of System Negative for fever, chills, weight loss, shortness of breath, chest pain, indigestion, hematochezia, melena, and dysuria. Full 14-point review of systems is negative. Physical Exam Physical Examination General: Well-developed, well-nourished white female in no acute distress HEENT: Normocephalic andatraumatic. Temporal arteriespulsatile and nontender. Neck: Supple without bruit, no meningismus Musculoskeletal: Stability:see neurologic. Gait exam:see neurologic. Tone:see n eurologic.Strength:see neurologic. Neurological: Mental Status:orientation, memory, attention span/concentration, language, fund of knowledge: abulic, does not follow commands, does not speak. Cranial Nerves:Pupils equal and reactive to light, extraocular movements areintact, visual tran are full to threat. Facial sensation is normal. There is no facial asymmetry. All other cranial related problems are negative except as mentioned before.Reflexes:1+ and symmetric with flexor plantar responses. Bilateral grasp reflexes. Motor:Moves all extremities except the right lower extremity just moves some, normal tone and bulk. Coordination and gait:Not testable. Sensory:Responds to sensory stimulation in all 4 extremities. Vitals VITALS Vital Signs Date Time Temp Pulse Resp B/P (MAP) Pulse Ox O2 Delivery O2 Flow Rate FiO2 01/05/22 08:00 Room Air 01/05/22 07:00 98.3 96 18 133/55 (81) 93 98.3 Labs Labs Laboratory Tests Test 01/04/22 11:31 White Blood Count 7.8 x10^3/uL (4.0-11.0) Red Blood Count 2.84 x10^6/uL (3.50-5.40) Hemoglobin 8.1 g/dL (12.0-15.5) Hematocrit 24.7 % (36.0-47.0) Mean Corpuscular Volume 87 fL (79-100) Mean Corpuscular Hemoglobin 28 pg (25-35) Mean Corpuscular Hemoglobin Concent 33 g/dL (31-37) Red Cell Distribution Width 14.7 % (11.5-14.5) Platelet Count 451 x10^3/uL (140-400) Neutrophils (%) (Auto) 77 % (31-73) Lymphocytes (%) (Auto) 9 % (24-48) Monocytes (%) (Auto) 10 % (0-9) Eosinophils (%) (Auto) 2 % (0-3) Basophils (%) (Auto) 1 % (0-3) Neutrophils # (Auto) 6.0 x10^3/uL (1.8-7.7) Lymphocytes # (Auto) 0.7 x10^3/uL (1.0-4.8) Monocytes # (Auto) 0.8 x10^3/uL (0.0-1.1) Eosinophils # (Auto) 0.2 x10^3/uL (0.0-0.7) Basophils # (Auto) 0.1 x10^3/uL (0.0-0.2) Sodium Level 139 mmol/L (136-145) Potassium Level 4.1 mmol/L (3.5-5.1) Chloride Level 105 mmol/L (98-107) Carbon Dioxide Level 30 mmol/L (21-32) Anion Gap 4 (6-14) Blood Urea Nitrogen 17 mg/dL (7-20) Creatinine 0.7 mg/dL (0.6-1.0) Estimated GFR (Cockcroft-Gault) 78.8 BUN/Creatinine Ratio 24 (6-20) Glucose Level 144 mg/dL (70-99) Calcium Level 8.4 mg/dL (8.5-10.1) Total Bilirubin 0.2 mg/dL (0.2-1.0) Aspartate Amino Transf (AST/SGOT) 73 U/L (15-37) Alanine Aminotransferase (ALT/SGPT) 114 U/L (14-59) Alkaline Phosphatase 179 U/L (46-116) Total Protein 5.4 g/dL (6.4-8.2) Albumin 1.8 g/dL (3.4-5.0) Albumin/Globulin Ratio 0.5 (1.0-1.7) Images Images CT Head without contrast 01/01/2022 9:31 AM Indication: Altered mental status Comparison: CT head without contrast November 13, 2021 Findings: No intracranial hemorrhage is seen. No evidence of acute territorial infarct is seen. Note that CT is limited in sensitivity for acute ischemia. Similar senescent atrophic changes are noted. Redemonstration of prominent patchy periventricular and deep white matter hypoattenuation which is nonspecific, but most commonly relates to chronic small vessel disease. No abnormal extra axial fluid collection is identified. No mass effect or midline shift is seen. No acute osseous abnormalities are seen. Impression: 1. No acute intracranial process identified 2. Similar senescent atrophic changes and changes of chronic small vessel disease as described Assessment/Plan Assessment/Plan Impression: Progression of dementia to abulia, I doubt that she has had a new stroke. She does have some metabolic issues including urinary tract infection and renal insufficiency as well as leukocytosis and anemia at admission. Recommendations: I discussed possibly doing an MRI with the patient's daughter but we agree that this would not affect her management or overall outlook. It is very unlikely the patient has had a significant stroke without at least some facial asymmetry in conjunction with her language difficulties. Therefore we will hold off on MRI I have ordered some laboratory studies for common reversible metabolic issues that could cause dementia, B12 and sedimentation rate After discussion with daughter, patient is DO NOT INTUBATE, partial code. Also discussed with Dr. Saul. Thank you for letting me help with the patient's care. PAUL ROWLAND MD January 05, 2022 11:59
--- NOTE | 2022-01-05 13:14 | RAD ---
EXAMINATION: US DPLX VENOUS EXTREMITY LOWER RT (LOWER EXTREMITY VENOUS ULTRASOUND) CLINICAL HISTORY: Right lower extremity pain. TECHNIQUE: Sonographic grayscale images obtained of the right lower extremity deep venous system with color flow Doppler, compression, and augmentation techniques as indicated. Images obtained and stor ed in a permanent archive. COMPARISON: None FINDINGS: No evidence of absent flow or incompressibility within the common femoral vein, femoral vein, or popl iteal vein. Visualized calf veins appear patent on limited evaluation. IMPRESSION: No evidence of right lower extremity DVT. Electronically signed by: Alejandro Inman DO (01/05/2022 1:11 PM) [facility] [place]
--- NOTE | 2022-01-05 13:29 | PDOC ---
[employer] PROGRESS NOTE Date of Service DOS: DATE: 01/05/22 TIME: 13:27 Chief Complaint Chief Complaint Exacerbation of dementia, rule out acute delirium Sepsis Acute cystitis Dehydration Transaminitis Elevated troponins Severe malnutrition History of Present Illness History of Present Illness 01/05/2022 No acute events overnight. Patient seen examined bedside. Patient remains nonverbal but she is alert and awake and following commands. Still unable to move her right side. DVT ultrasound negative. Neurology consulted and daughter does not want to proceed with MRI of the brain as this would not likely not change any management. Neurology still believes that most of the issues are related to dementia. Labs ordered to rule out delirium. 01/04 Patient evaluated examined at bedside. Noted nida from surgical site on right hip removed yesterday. Patient still pretty nonverbal this morning not able to follow commands. Still deficiencies on right side. Also having very minimal p.o. intake. Will start maintenance fluids for her. Continue therapy. Continue antibiotics for cystitis. Possible discharge back to facility in the next day or 2. Discussed with bedside RN 01/03 Evaluate examined at bedside. Daughter present as well. Did speak a few words to her daughter last night but has not spoken since. Still with quite a bit right-sided weakness almost in line with stroke but at this point would be well out of the window for any sort of interventions. Continue antibiotics. We will see if nida from recent left hip surgery can be removed. Surgical site looks ok. Otherwise continue current, possible d/c back to facility early next week. Discussed with bedsideRN. 01/02: Patient seen with daughter at bedside. She is still not spoken yet, and daughter states she has not spoken since Wednesday12/31/21. She does have a little more alert and daughter states she is moving her arms more. Tomorrow should be day 3 of Rocephin. Will await urine cultures to ensure complete treatment. PT/OT. Vitals/I&O Vitals/I&O: Vital Signs Date Time Temp Pulse Resp B/P (MAP) Pulse Ox O2 Delivery O2 Flow Rate FiO2 01/05/22 11:00 98.1 90 18 137/62 (87) 94 Room Air 98.1 I & O 01/04/22 01/04/22 01/05/22 15:00 23:00 07:00 Intake Total 504 ml Output Total 0 ml Balance 504 ml 0 ml Physical Exam General: Alert, No acute distress Heart: Regular rate Lungs: Clear Abdomen: Soft, No tenderness Extremities: No cyanosis Skin: No rashes Labs Labs: Laboratory Tests Test 01/05/22 12:16 Vitamin B12 Level 498 pg/mL (749-911) Assessment and Plan Assessmemt and Plan Problems Medical Problems: (1) Altered mental status Status: Acute (2) Elevated troponin Status: Acute (3) Urinary tract infection Status: Acute Comment Review of Relevant I have reviewed the following items elaien (where applicable) has been applied. Justifications for Admission Other Justification GLADYS KINCAID MD January 05, 2022 13:28
--- NOTE | 2022-01-05 14:07 | NUR ---
SS following up with discharge planning. SS reviewed pt chart and discussed with pt RN. Pt is LTC resident from [facility], ; fax [phone]. Pt is currently on room air. Pt on IV Rocephin. COVID19 negative. PO diet. PT/OT recommended custodial unit. SS will continue to follow for discharge planning.
[2022-01-05 15:00] VITALS: BP 125/61
[2022-01-05 19:00] VITALS: BP 128/51
[2022-01-05] MEDS: MIRTAZAPINE 15 MG TABLET PO SCH (21:00)
[2022-01-05] MEDS ORDERED: IV DEXTROSE 5 %-0.45 % NACL 1,000 ML IV SCH (22:30)
[2022-01-05 23:00] VITALS: BP 136/60
[2022-01-06 03:00] VITALS: BP 136/64
[2022-01-06 07:00] VITALS: BP 135/50
[2022-01-06] MEDS: HEPARIN for SUB-Q USE 5,000 UNIT/ML VIAL. SQ SCH (08:26)
[2022-01-06] MEDS ORDERED: CEFDINIR 300 MG CAPSULE PO SCH (09:00)
[2022-01-06] MEDS: LACTOBACILLUS RHAMNOSUS GG 1 CAPSULE. PO SCH (09:00)
[2022-01-06] MEDS: MEMANTINE 10 MG TABLET. PO SCH (09:00)
[2022-01-06 09:15] LABS: BASO # 0.1 x10^3/uL (0.0-0.2); BASO % 1 % (0-3); EOS # 0.2 x10^3/uL (0.0-0.7); EOS % 3 % (0-3); HEMATOCRIT 23.8 % (36.0-47.0); LYMPH % 13 % (24-48); MEAN CORPUSCULAR HEMOGLOBIN 29 pg (25-35); MEAN CORPUSCULAR HGB CONC 34 g/dL (31-37); MEAN CORPUSCULAR VOLUME 87 fL (79-100); MONO # 0.8 x10^3/uL (0.0-1.1); MONO % 10 % (0-9); NEUT # 5.8 x10^3/uL (1.8-7.7); NEUT % 73 % (31-73); PLATELET COUNT 478 x10^3/uL (140-400); RED BLOOD COUNT 2.74 x10^6/uL (3.50-5.40); RED CELL DISTRIBUTION WIDTH 15.2 % (11.5-14.5); WHITE BLOOD COUNT 7.9 x10^3/uL (4.0-11.0)
[2022-01-06 09:41] LABS: CALCIUM 8.6 mg/dL (8.5-10.1); CREATININE 0.6 mg/dL (0.6-1.0); GFR 94.1; POTASSIUM 4.1 mmol/L (3.5-5.1)
[2022-01-06 11:00] VITALS: BP 128/50
[2022-01-06] MEDS ORDERED: CEFD300C PO (12:31)
--- NOTE | 2022-01-06 12:34 | SNU/HH DC ---
DISCHARGE ORDERS DISCHARGE INFORMATION: DISCHARGE DATE: January 06, 2022 FINAL DIAGNOSIS Problems Medical Problems: (1) Altered mental status Status: Acute (2) Elevated troponin Status: Acute (3) Urinary tract infection Status: Acute CONDITION ON DISCHARGE: Stable CODE STATUS: Code Status: DNR/DNI MCFP: SNF STAY <30 DAYS: Yes POST DISCHARGE ORDERS: ACTIVITY ORDERS: Activity as tolerated WEIGHT BEARING STATUS: As tolerated DIET AFTER DISCHARGE: Regular (Puree diet w/thin liquids) OTHER WOUND INSTRUCTIONS: Please check incision and remove any dressings. OTHER ORDERS: Call Dr. Jones (ortho) for questions FOLLOW-UP: PHYSICIAN FOLLOW-UP: PCP within 2 weeks of discharge LAB ORDERS FOR FOLLOW-UP: CBC, CMP in 1 week Additional Instructions: Please follow-up with ferritin and iron panel studies and see if iron supplementation is necessary TREATMENT/EQUIPMENT ORDERS: Physical Therapy For: Evalulation/Treatment Occupational Therapy For: Evaluation/Treatment Speech Language Pathology For: Evaluation/Treatment DISCHARGE MEDICATIONS: Home Meds Active Scripts Cefdinir (CEFDINIR) 300 Mg Capsule, 300 MG PO BID for uti for 3 Days, #6 CAP Prov:GLADYS KINCAID MD 01/06/22 Reported Medications Acetaminophen (ACETAMINOPHEN) 500 Mg Tablet, 1 TAB PO PRN Q6HRS PRN for pain or fever for 15 Days, #60 TAB 0 Refills 01/01/22 Mirtazapine (MIRTAZAPINE) 15 Mg Tablet, 1 TAB PO QHS for sleep, #30 TAB 3 Refills 11/09/21 Memantine Hcl (NAMENDA) 10 Mg Tablet, 1 TAB PO BID for dementia, #180 TAB 1 Refill 11/09/21 Vitamin E Acetate (VITAMIN E) 1,000 Unit Capsule, 1 CAP PO DAILYWBKFT for supplement for 30 Days, #30 CAP 0 Refills 11/09/21 Multivitamin With Minerals (MULTIVITAMINS WITH MINERALS) 1 Each Tablet, 1 TAB PO DAILY for supplement for 30 Days, #30 TAB 0 Refills 11/09/21 Discontinued Reported Medications Ciprofloxacin (CIPRO) 500 Mg/5 Ml Milagro.mc.rec, 500 MG PO BID for UTI for 7 Days, SUSPENSION 01/01/22 Discontinued Scripts Tramadol Hcl (TRAMADOL HCL) 50 Mg Tablet, 50 MG PO PRN Q6HRS PRN for MODERATE PAIN 4-6 for 14 Days, #20 TAB Prov:CASTLENIAL K III DO 12/23/21 GLADYS KINCAID MD January 06, 2022 12:34
--- NOTE | 2022-01-06 13:33 | NUR ---
SS following up with discharge planning. SS reviewed pt chart and discussed with pt RN. Pt is LTC resident from [facility], ; fax [phone]. Pt is currently on room air. COVID19 negative. PO diet. PT/OT recommended group home unit. Discharge orders received for return to facility. Clinical updates and discharge orders sent to [facility]. SS discussed with Claim Examiner, Mamta, . Pt will discharge today and return to facility at 1500 via [facility] ambulance, . Pt, pt's RN, and pt's family notified.
--- NOTE | 2022-01-06 14:45 | NUR ---
Morning medications not given because patient is somnolent and not able to take PO at this time.
--- NOTE | 2022-01-06 15:55 | PDOC ---
PROGRESS NOTES Date of Service DATE: 01/06/22 TIME: 15:53 Assessment Problems Medical Problems: (1) Altered mental status Status: Acute (2) Elevated troponin Status: Acute (3) Urinary tract infection Status: Acute Progression of dementia to abulia, I doubt that she has had a new stroke. She does have some metabolic issues including urinary tract infection and renal insufficiency as well as leukocytosis and anemia at admission. Slightly elevated sedimentation rate, normal B12 Plan DO NOT INTUBATE, partial code. Agree with transfer back to [facility] Discussed with daughter who is in the room now, nothing to add from yesterday's discussion Subjective None Objective Vital Signs Date Time Temp Pulse Resp B/P (MAP) Pulse Ox O2 Delivery O2 Flow Rate FiO2 01/06/22 11:00 97.6 105 16 128/50 (76) 94 97.6 01/06/22 03:00 Room Air Intake and Output 01/06/22 07:00 Intake Total 50 ml Balance 50 ml Intake Oral 50 ml # Voids 3 PHYSICAL EXAM Eyes open, looks at observer, I believe she does tell me her name now, but no other verbal output PERRL. EOMI. CN: no focal findings. Muscle tone: normal. Muscle strength: Moves all extremities except the right lower extremity splints a little. Bilateral grasp reflexes DTR: 1+ Plantar reflex: Flexor Gait: not examined in bed. Sensory exam: no abnormal findings. No cerebellar signs elicited. Review of Relevant I have reviewed the following items elaine (where applicable) has been applied. Labs Laboratory Tests Test 01/05/22 08:30 01/05/22 12:16 01/06/22 08:45 Coronavirus (COVID-19)(PCR) Not detected (NOT DETECTD) Erythrocyte Sedimentation Rate 55 (0-25) Vitamin B12 Level 498 pg/mL (247-911) White Blood Count 7.9 x10^3/uL (4.0-11.0) Red Blood Count 2.74 x10^6/uL (3.50-5.40) Hemoglobin 8.0 g/dL (12.0-15.5) Hematocrit 23.8 % (36.0-47.0) Mean Corpuscular Volume 87 fL (79-100) Mean Corpuscular Hemoglobin 29 pg (25-35) Mean Corpuscular Hemoglobin Concent 34 g/dL (31-37) Red Cell Distribution Width 15.2 % (11.5-14.5) Platelet Count 478 x10^3/uL (140-400) Neutrophils (%) (Auto) 73 % (31-73) Lymphocytes (%) (Auto) 13 % (24-48) Monocytes (%) (Auto) 10 % (0-9) Eosinophils (%) (Auto) 3 % (0-3) Basophils (%) (Auto) 1 % (0-3) Neutrophils # (Auto) 5.8 x10^3/uL (1.8-7.7) Lymphocytes # (Auto) 1.0 x10^3/uL (1.0-4.8) Monocytes # (Auto) 0.8 x10^3/uL (0.0-1.1) Eosinophils # (Auto) 0.2 x10^3/uL (0.0-0.7) Basophils # (Auto) 0.1 x10^3/uL (0.0-0.2) Sodium Level 141 mmol/L (136-145) Potassium Level 4.1 mmol/L (3.5-5.1) Chloride Level 106 mmol/L (98-107) Carbon Dioxide Level 29 mmol/L (21-32) Anion Gap 6 (6-14) Blood Urea Nitrogen 18 mg/dL (7-20) Creatinine 0.6 mg/dL (0.6-1.0) Estimated GFR (Cockcroft-Gault) 94.1 Glucose Level 100 mg/dL (70-99) Calcium Level 8.6 mg/dL (8.5-10.1) Magnesium Level 2.0 mg/dL (1.8-2.4) Iron Level 32 ug/dL (50-170) Total Iron Binding Capacity 183 ug/dL (250-450) Iron Saturation 17 % (15-34) Ferritin 392 ng/mL (8-252) Laboratory Tests Test 01/06/22 08:45 White Blood Count 7.9 x10^3/uL (4.0-11.0) Red Blood Count 2.74 x10^6/uL (3.50-5.40) Hemoglobin 8.0 g/dL (12.0-15.5) Hematocrit 23.8 % (36.0-47.0) Mean Corpuscular Volume 87 fL (79-100) Mean Corpuscular Hemoglobin 29 pg (25-35) Mean Corpuscular Hemoglobin Concent 34 g/dL (31-37) Red Cell Distribution Width 15.2 % (11.5-14.5) Platelet Count 478 x10^3/uL (140-400) Neutrophils (%) (Auto) 73 % (31-73) Lymphocytes (%) (Auto) 13 % (24-48) Monocytes (%) (Auto) 10 % (0-9) Eosinophils (%) (Auto) 3 % (0-3) Basophils (%) (Auto) 1 % (0-3) Neutrophils # (Auto) 5.8 x10^3/uL (1.8-7.7) Lymphocytes # (Auto) 1.0 x10^3/uL (1.0-4.8) Monocytes # (Auto) 0.8 x10^3/uL (0.0-1.1) Eosinophils # (Auto) 0.2 x10^3/uL (0.0-0.7) Basophils # (Auto) 0.1 x10^3/uL (0.0-0.2) Sodium Level 141 mmol/L (136-145) Potassium Level 4.1 mmol/L (3.5-5.1) Chloride Level 106 mmol/L (98-107) Carbon Dioxide Level 29 mmol/L (21-32) Anion Gap 6 (6-14) Blood Urea Nitrogen 18 mg/dL (7-20) Creatinine 0.6 mg/dL (0.6-1.0) Estimated GFR (Cockcroft-Gault) 94.1 Glucose Level 100 mg/dL (70-99) Calcium Level 8.6 mg/dL (8.5-10.1) Magnesium Level 2.0 mg/dL (1.8-2.4) Iron Level 32 ug/dL (50-170) Total Iron Binding Capacity 183 ug/dL (250-450) Iron Saturation 17 % (15-34) Ferritin 392 ng/mL (8-252) Microbiology 01/01/22 Urine Culture - Final, Complete 01/01/22 Blood Culture - Final, Complete NO GROWTH AFTER 5 DAYS Medications Current Medications Sodium Chloride 1,000 ml @ 999 mls/hr 1X ONCE IV Last administered on 01/01/22at 09:13; Start 01/01/22 at 09:15; Stop 01/01/22 at 10:15; Status DC Ceftriaxone Sodium (Rocephin) 1 gm 1X ONCE IVP Last administered on 01/01/22at 10:24; Start 01/01/22 at 09:30; Stop 01/01/22 at 09:31; Status DC Sodium Chloride 1,000 ml @ 1,000 mls/hr 1X ONCE IV Last administered on 01/01/22at 15:20; Start 01/01/22 at 15:00; Stop 01/01/22 at 15:59; Status DC Ceftriaxone Sodium (Rocephin) 1 gm Q24H IVP Last administered on 01/05/22at 08:19; Start 01/02/22 at 10:00; Stop 01/06/22 at 08:00; Status DC Memantine (Namenda) 10 mg BID PO Last administered on 01/05/22at 08:19; Start 01/01/22 at 21:00 Mirtazapine (Remeron) 15 mg QHS PO Last administered on 01/04/22at 20:29; Start 01/01/22 at 21:00 Tramadol HCl (Ultram) 50 mg PRN Q6HRS PRN PO MODERATE PAIN 4-6 Last administere d on 01/05/22at 14:43; Start 01/01/22 at 15:00 Ondansetron HCl (Zofran) 4 mg PRN Q6HRS PRN IVP NAUSEA/VOMITING; Start 01/01/22 at 15:00 Al Hydroxide/Mg Hydroxide (Mylanta Plus Xs) 30 ml PRN Q3HRS PRN PO HEARTBURN / GAS; Start 01/01/22 at 15:00 Morphine Sulfate (Morphine Sulfate) 2 mg PRN Q1HR PRN IV PAIN; Start 01/01/22 at 15:00 Acetaminophen/ Hydrocodone Bitart (Lortab 5/325) 1 tab PRN Q4HRS PRN PO MILD PAIN 1-3; Start 01/01/22 at 15:00 Acetaminophen (Tylenol) 650 mg PRN Q6HRS PRN PO Headaches, Temp > 101.5F; Start 01/01/22 at 15:00 Heparin Sodium (Porcine) (Heparin Sodium) 5,000 unit Q12HR SQ Last administered on 01/06/22at 08:26; Start 01/01/22 at 21:00 Lactobacillus Rhamnosus (Culturelle) 1 cap BID PO Last administered on 01/05/22at 08:19; Start 01/03/22 at 21:00 Dextrose/Lactated Ringer's 1,000 ml @ 75 mls/hr 1X ONCE IV Last administered on 01/04/22at 11:30; Start 01/04/22 at 11:30; Stop 01/05/22 at 00:49; Status DC Dextrose/Sodium Chloride 1,000 ml @ 75 mls/hr [id number] IV Last administered on 01/05/22at 22:41; Start 01/05/22 at 22:30 Cefdinir (Omnicef) 300 mg BID PO ; Start 01/06/22 at 09:00; Stop 01/09/22 at 08:59 Active Scripts Active Cefdinir 300 Mg Capsule 300 Mg PO BID 3 Days Reported Acetaminophen 500 Mg Tablet 1 Tab PO PRN Q6HRS PRN 15 Days Mirtazapine 15 Mg Tablet 1 Tab PO QHS Namenda (Memantine Hcl) 10 Mg Tablet 1 Tab PO BID Vitamin E (Vitamin E Acetate) 1,000 Unit Capsule 1 Cap PO DAILYWBKFT 30 Days Multivitamins With Minerals (Multivitamin With Minerals) 1 Each Tablet 1 Tab PO DAILY 30 Days Vitals/I & O Vital Sign - Last 24 Hours 01/05/22 01/05/22 01/05/22 01/06/22 19:00 20:00 23:00 03:00 Temp 97.5 98.4 98.0 97.5 98.4 98.0 Pulse 105 108 104 Resp 20 20 20 B/P (MAP) 128/51 (76) 136/60 (85) 136/64 (88) Pulse Ox 94 96 96 O2 Delivery Room Air Room Air Room Air Room Air 01/06/22 01/06/22 07:00 11:00 Temp 98.4 97.6 98.4 97.6 Pulse 88 105 Resp 18 16 B/P (MAP) 135/50 (78) 128/50 (76) Pulse Ox 93 94 Intake and Output 01/05/22 01/05/22 01/06/22 15:00 23:00 07:00 Intake Total 50 ml Balance 50 ml Justicifation of Admission Dx: Justifications for Admission: Justification of Admission Dx: N/A PAUL ROWLAND MD January 06, 2022 15:55
== END 2022-01-06 16:15 | DRG 871 ==
LOC: ER 08:31 → 5 NORTH 10:28
PROVIDERS: ADMIT Family Medicine; ATTEND Family Medicine
DX: A41.9 Sepsis, unspecified organism (principal); E43 Unspecified severe protein-calorie malnutrition; N30.01 Acute cystitis with hematuria; Z68.24 Body mass index [BMI] 24.0-24.9, adult; Z88.0 Allergy status to penicillin; Z20.822 Contact with and (suspected) exposure to COVID-19; D64.9 Anemia, unspecified; E86.0 Dehydration; F03.90 Unspecified dementia, unspecified severity, without behavioral disturbance, psychotic disturbance, mood disturbance, and anxiety; M81.0 Age-related osteoporosis without current pathological fracture; N28.9 Disorder of kidney and ureter, unspecified; Z66 Do not resuscitate; Z81.8 Family history of other mental and behavioral disorders; Z96.641 Presence of right artificial hip joint; F32.A Depression, unspecified; M19.90 Unspecified osteoarthritis, unspecified site; Z87.81 Personal history of (healed) traumatic fracture; Z87.440 Personal history of urinary (tract) infections; R74.01 Elevation of levels of liver transaminase levels
CPT/HCPCS: 36415; 70450; 71045; 80048; 80053; 81001; 82607; 82728; 83540; 83550; 83605; 83735; 83880; 84484; 85025; 85651; 87040; 87086; 87428; 93005; 93971; 96361; 96374; J0696; J1644; J7030; J7042; J7121; U0003; 92526-GN; 92610-GN; 97110-GP; 97530-GO; 97530-GP; 97535-GO; 99285-25; G0378